=== PATIENT | female | born 1980 | race Two or more races ===

== ENCOUNTER 2020-08-26 10:29 | Emergency (ER) | payer BC, SELFPAY ==
[2020-08-26 11:22] VITALS: BP 112/73; PULSE 94; RESP 18; TEMP 36.2; O2SAT 100; BMI 30.7
[2020-08-26 12:02] VITALS: BP 122/80; PULSE 90; RESP 16; TEMP 36.5; O2SAT 97
--- NOTE | 2020-08-26 12:10 | PC.NURSE ---
PT UPRIGHT IN BED, RR EVEN UNLABORED, SKIN WPD, AOX3. PT C/O INTERMITTENT PAIN TO SUBSTERNAL CHEST/EPIGASTRUM, BILAT SHOULDERS, MID BACK ONGOING X~2 WEEKS. PT STS SEEN HERE FOR SAME RECENTLY, PRESCRIBED MEDICATIONS WHICH HAVE NOT IMPROVED SX. PT STS SX WORSEN AFTER EATING. PT IN NAD, VSS, AWAITING PRIMARY PROVIDER EVAL.
[2020-08-26 12:15] VITALS: PULSE 90
--- NOTE | 2020-08-26 12:39 | XR_ITS ---
EXAMINATION: XR CHEST CLINICAL INFORMATION: Chest pain COMPARISON: None TECHNIQUE: Frontal view of the chest was obtained. FINDINGS: The cardiac and mediastinal contours are normal. There is a 1 cm nodular density at the left lung base probably representing a nipple shadow. The lungs are otherwise clear. There is no pleural effusion or pneumothorax. Bony structures are unremarkable. IMPRESSION: No evidence for acute disease in the chest.
--- NOTE | 2020-08-26 12:39 | ECG_ITS ---
Test Reason : CHEST WALL PAIN Blood Pressure : / mmHG Vent. Rate : 103 BPM Atrial Rate : 103 BPM P-R Int : 146 ms QRS Dur : 070 ms QT Int : 338 ms P-R-T Axes : 035 028 008 degrees QTc Int : 442 ms Sinus tachycardia Nonspecific T wave abnormality Abnormal ECG No previous ECGs available Referred By: Echo Meredith Electronically Signed By:ROXANA BELLO
[2020-08-26] MEDS: Lidocaine 4 % Patch ADH..PATCH 2 PATCH TRANSDERMA (13:21)
[2020-08-26 13:22] LABS: MANUAL DIFF FLAG NO
[2020-08-26] MEDS: diazePAM 5 MG TABLET PO (13:22)
[2020-08-26] MEDS: Ketorolac Tromethamine 15 MG/ML VIAL IV (13:22)
[2020-08-26 13:24] LABS: Basophils Absolute Auto 0.1 X10*3/uL (0.0-0.2); Basophils Percent Auto 0.7 % (0-2); Eosinophils Absolute Auto 0.2 X10*3/uL (0.0-0.4); Eosinophils Percent Auto 2.7 % (0-4); Hematocrit 40.1 % (37-47); Hemoglobin 12.8 g/dl (12.0-16.0); Imm Gran Abs Auto 0.02 X10*3/uL (0.00-0.03); Imm Gran Pct Auto 0.2 % (0.0-0.4); Lymphocytes Absolute Auto 2.7 X10*3/uL (1.2-4.9); Mean Corpuscular HGB Conc 31.9 g/dl (31.0-35.0); Mean Corpuscular Hemoglobin 27.4 pg (27.0-33.0); Mean Corpuscular Volume 85.7 fL (80-98); Mean Platelet Volume 10.2 fL (9.4-12.3); Monocytes Absolute Auto 0.5 X10*3/uL (0.1-1.2); Neutrophils Absolute Auto 5.5 X10*3/uL (2.0-8.3); Neutrophils Percent Auto 61.4 % (45-73); Platelet Count 252 X10*3/uL (160-400); Red Blood Count 4.68 X10*6/uL (4.20-5.50); Red Cell Distribution Width 14.6 % (11.0-16.0)
[2020-08-26 13:35] LABS: Prothrombin Time 11.4 SEC (10.8-13.0)
--- NOTE | 2020-08-26 13:40 | ED_ITS ---
HPI - Chest Pain General Chief Complaint: Chest Pain Stated Complaint: PAIN SHOULDERS BACK Time Seen by Provider: 08/26/20 12:23 Source: patient Mode of arrival: ambulatory Limitations: language barrier ( [place]-speaking) History of Present Illness HPI narrative: 40yoF c NO PMHx presenting to the ED c c/o chest pain radiating to left scapula/back worse c deep inspiration x 1 month. Denies changes in vision, lightheadedness, dizziness, jaw pain, paresthesias, nausea /vomiting, SOB, abdominal pain or extremity swelling. Patient reports she was recently seen here approximately 2 weeks ago given Toradol and muscle relaxers and no symptomatic relief. Risk Factors Coronary artery disease risk factors: smoking history Thoracic aortic dissection risk factors: none Related Data On Oral Contraceptives: No Allergies Allergy/AdvReac Type Severity Reaction Status Date / Time tramadol [TRAMADOL] Allergy Severe ITCHING Verified 08/26/20 11:22 Review of Systems Review of Systems: Yes all other systems are reviewed and are negative Constitutional: Constitutional: Reports as per HPI, Denies excessive sweating, Denies fatigue, Denies headache(s) and Denies weakness Eyes: Eyes: Reports as per HPI ENT: Reports as per HPI, Denies dizziness and Denies headache(s) Cardiovascular: Cardiovascular: Reports as per HPI, Denies diaphoresis, Denies rapid heart rate, Denies pedal edema, Denies edema, Denies leg edema, Denies lightheadedness, Denies palpitations, Denies dyspnea on exertion, Denies orthopnea, Denies paroxysmal nocturnal dyspnea and Denies slow heart rate Respiratory: Respiratory: Reports as per HPI, Denies cough and Denies dyspnea on exertion Gastrointestinal: Gastrointestinal: Reports as per HPI Genitourinary: Genitourinary: Reports as per HPI Musculoskeletal: Musculoskeletal: Reports as per HPI, Denies numbness and Denies tingling Integumentary/Breasts: Skin/Breast: Reports as per HPI Neurologic: Reports as per HPI, Denies dizziness, Denies headache(s), Denies numbness, Denies tingling and Denies weakness Psychiatric: Psychiatric: Reports as per HPI Endocrine: Endocrine: Reports as per HPI, Denies excessive sweating, Denies fatigue and Denies palpitations Hematologic/Lymphatic: Hematologic/Lymphatic: Reports as per HPI Allergic/Immunologic: Allergic/Immunologic: Reports as per HPI [facility] Past Medical History Attestation statement: The following information was validated with the patient. Social History Social History Alcohol intake: never Smoking Status: Current every day smoker Use of substances other than those prescribed or required for medical reasons: No Advance Directives: No Advance Directives Information Provided: Yes Physical Exam Vital Signs and I&O and Narrative: Vital Signs and I&O: Vital Signs Temp 97.7 F 08/26/20 12:02 Pulse 90 08/26/20 12:02 Resp 16 08/26/20 12:02 BP 122/80 08/26/20 12:02 Pulse Ox 97 08/26/20 12:02 Intake & Output 08/25/20 08/26/20 08/26/20 18:59 06:59 18:59 Weight 76.204 kg Body Mass Index 30.7 Const: General: cooperative, healthy appearing, comfortable, no acute distress, well developed, alert, awake and Physically active Nutritional Appearance: average body habitus and well nourished Orientation/consciousness: patient oriented x3 Limitations: no limitations HENMT: Head: Yes normal to inspection, Yes No palpable skull fracture present, Yes normocephalic and Yes atraumatic Ears: hearing grossly normal bilaterally General nose exam: Normal external nose present Face and sinus: Yes normal facial exam Mouth: moist mucous membranes Eyes: General: appearance normal, both eyes and all related structures Visual Chirinos: normal visual chirinos by confrontation Alignment and Position: alignment normal Periorbital: periorbital findings normal Eyelids: Yes eyelids normal Conjunctivae: conjunctivae normal Sclerae: sclerae normal Pupils: Equal, round and reactive pupils present EOM: EOMs intact bilaterally Neck: Neck: Yes normal visual inspection, Yes full ROM, Yes no lymphadenopathy, Yes no meningeal signs, Yes trachea midline and Yes supple Chest: Chest palpation & inspection: normal inspection of the chest and tenderness pectoral muscle on the left Resp: Effort & Inspection: normal respiratory effort and able to speak in complete sentences Auscultation: clear to auscultation bilaterally, no crackles, no rales, no rhonchi and no wheezes Cardio: Rate: regular rate Rhythm: regular rhythm Heart sounds: S1 normal heart sound present and S2 normal heart sound present Peripheral pulses: Peripheral pulses 2+ throughout GI: Inspection: Yes normal to inspection Palpation (GI): Soft to palpation, nontender and No hepatosplenomegaly present Percussion: Yes normal to percussion Auscultation: normal bowel sounds : General: Yes no CVA tenderness Back/Spine/Pelvis: Back: no CVA tenderness Cervical Spine: normal cervical lordosis and cervical ROM normal Thoracic/Lumbar Spine: thoracic and lumbar spine normal to inspection and thoraco-lumbar ROM normal Skin: General skin exam: no rashes or lesions noted, elasticity normal and turgor normal Trauma: no lacerations or abrasions Wounds: no wounds Hair: normal Nails: normal Neuro: General: patient oriented x3 and no meningeal signs Cranial nerves: Yes CN's II-XII intact bilaterally and Yes Equal, round and reactive pupils present Cognition (Neuro): normal cognition Gait exam (Neuro): Normal gait present Motor exam (neuro): 5/5 motor strength present throughout Extrem: General: Yes normal to inspection, Yes full ROM, Yes capillary refill normal, Yes no clubbing, cyanosis or edema, No no pedal edema, No no calf tenderness, Yes normal gait and No edema Right upper extremity: normal to inspection, full ROM and normal capillary refill; no edema Left upper extremity: normal to inspection, full ROM and normal capillary refill; no edema Right lower extremity: normal to inspection, full ROM and normal capillary refill; no edema Left lower extremity: normal to inspection, full ROM and normal capillary refill; no edema Psych: Appearance: grossly normal and well kempt Mental Status: mental status grossly normal Speech and movement: Normal speech and movement present and Clear speech present Affect: normal affect Attitude: cooperative Thought process: Normal thought process present Thought content: Normal thought content present Insight: Good insight present (Psych) Judgement: Good judgement present (Psych) Course Course Course Narrative: Labs WNL including D-dimer and troponin. Chest x-ray within normal limits no acute processes noted. EKG sinus tachycardia no acute ischemic changes. no prior EKGs to compare. Patient reports symptomatic relief mildly with the Toradol, Valium and lidocaine patches. Will DC home with symptomatic treatment along with instructions to return if any new or worsening symptoms and to follow up with primary care provider. Patient understands agrees with this plan. MDM - Chest Pain MDM Narrative Medical decision making narrative: 40yoF c NO PMHx presenting to the ED c c/o chest pain radiating to left scapula/back worse c deep inspiration x 1 month. Denies changes in vision, lightheadedness, dizziness, jaw pain, paresthesias, nausea /vomiting, SOB, abdominal pain or extremity swelling. - Concern for ACS vs PE vs muscular strain. - Plan: Labs, CXR, ekg. Provide symptomatic treatment with Lidoderm patches, Flexeril and Valium then re-evaluate. Medical Records Data Attestation: I reviewed the patient's medical records. Lab Data Attestation: I reviewed the patient's lab results. Result diagrams: 08/26/20 13:08 08/26/20 13:08 Labs: Lab Results 08/26/20 08/26/20 08/26/20 Range/Units 13:08 13:08 13:08 WBC 9.0 (4.8-10.8) X10*3/uL RBC 4.68 (4.20-5.50) X10*6/uL Hgb 12.8 (12.0-16.0) g/dl Hct 40.1 (37-47) % MCV 85.7 (80-98) fL MCH 27.4 (27.0-33.0) pg MCHC 31.9 (31.0-35.0) g/dl RDW 14.6 (11.0-16.0) % Plt Count 252 (160-400) X10*3/uL MPV 10.2 (9.4-12.3) fL Immature Gran % (Auto) 0.2 (0.0-0.4) % Neut % (Auto) 61.4 (45-73) % Lymph % (Auto) 30.0 (20-40) % [place] % (Auto) 5.0 (2-11) % Eos % (Auto) 2.7 (0-4) % Baso % (Auto) 0.7 (0-2) % Neut # (Auto) 5.5 (2.0-8.3) X10*3/uL Lymph # (Auto) 2.7 (1.2-4.9) X10*3/uL [place] # (Auto) 0.5 (0.1-1.2) X10*3/uL Eos # (Auto) 0.2 (0.0-0.4) X10*3/uL Baso # (Auto) 0.1 (0.0-0.2) X10*3/uL Abs Immat Gran (auto) 0.02 (0.00-0.03) X10*3/uL Absolute Nucleated RBC 0.000 (0.0-0.012) X10*3/uL Nucleated RBC % (auto) 0.0 (0.0-0.2) /100WBC PT 11.4 (10.8-13.0) SEC INR 1.0 (0.9-1.1) D-Dimer 221 NG/ML Sodium 139 (135-145) mmol/L Potassium 3.8 (3.3-5.1) mmol/l Chloride 107 (96-108) mmol/L Carbon Dioxide 27 (22-29) mmol/L Anion Gap 9 L (12-20) BUN 13 (9-16) mg/dL Creatinine 0.80 (0.5-1.4) mg/dL Estim Creat Clear Calc 91.1 Estimated GFR > 60 Random Glucose 76 (60-115) mg/dL Calcium 9.1 (8.4-10.2) mg/dL Troponin I High Sens (<3.5-17.0) ng/L 08/26/20 Range/Units 13:08 WBC (4.8-10.8) X10*3/uL RBC (4.20-5.50) X10*6/uL Hgb (12.0-16.0) g/dl Hct (37-47) % MCV (80-98) fL MCH (27.0-33.0) pg MCHC (31.0-35.0) g/dl RDW (11.0-16.0) % Plt Count (160-400) X10*3/uL MPV (9.4-12.3) fL Immature Gran % (Auto) (0.0-0.4) % Neut % (Auto) (45-73) % Lymph % (Auto) (20-40) % [place] % (Auto) (2-11) % Eos % (Auto) (0-4) % Baso % (Auto) (0-2) % Neut # (Auto) (2.0-8.3) X10*3/uL Lymph # (Auto) (1.2-4.9) X10*3/uL [place] # (Auto) (0.1-1.2) X10*3/uL Eos # (Auto) (0.0-0.4) X10*3/uL Baso # (Auto) (0.0-0.2) X10*3/uL Abs Immat Gran (auto) (0.00-0.03) X10*3/uL Absolute Nucleated RBC (0.0-0.012) X10*3/uL Nucleated RBC % (auto) (0.0-0.2) /100WBC PT (10.8-13.0) SEC INR (0.9-1.1) D-Dimer NG/ML Sodium (135-145) mmol/L Potassium (3.3-5.1) mmol/l Chloride (96-108) mmol/L Carbon Dioxide (22-29) mmol/L Anion Gap (12-20) BUN (9-16) mg/dL Creatinine (0.5-1.4) mg/dL Estim Creat Clear Calc Estimated GFR Random Glucose (60-115) mg/dL Calcium (8.4-10.2) mg/dL Troponin I High Sens < 3.5 (<3.5-17.0) ng/L Imaging Data Chest x-ray: Attestation: I personally reviewed and interpreted this imaging study as follows: Radiologist's impression: IMPRESSION: No evidence for acute disease in the chest. ECG Data ECG #1: Attestation: I personally reviewed and interpreted this ECG as follows: ECG interpretation date: 08/26/20 ECG interpretation time: 10:48 Interpretation: sinus tachycardia ventricular rate 103 with Normal WA interval nonspecific T-wave abnormalities, normal QT / QTC interval, no acute ischemic changes noted. no prior EKG to compare at this time
[2020-08-26 13:58] LABS: Blood Urea Nitrogen 13 mg/dL (9-16); Calcium 9.1 mg/dL (8.4-10.2); Creatinine Clr Calc Pharmacy 91.1; Estimated Glomerular Filt Rate > 60; Glucose Random 76 mg/dL (60-115)
[2020-08-26 13:59] LABS: Troponin-I High Sensitivity < 3.5 ng/L (<3.5-17.0)
[2020-08-26 14:00] VITALS: BP 119/74; PULSE 75; RESP 15; TEMP 36.6; O2SAT 100
[2020-08-26 14:09] LABS: Anion Gap 9 (12-20); Carbon Dioxide 27 mmol/L (22-29); Chloride 107 mmol/L (96-108); Potassium 3.8 mmol/l (3.3-5.1); Sodium 139 mmol/L (135-145)
[2020-08-26 14:52] LABS: D Dimer 221 NG/ML
[2020-08-26 15:05] LABS: Glucose Urine UA NEG (NEG); Leukocyte Esterase Urine NEG (NEG); Nitrite Urine NEG (NEG); Urine Blood NEG (NEG); Urine Ketones NEG (NEG); Urine Protein NEG (NEG-TRACE)
[2020-08-26 15:18] LABS: Mucus Urine 1+ /LPF; RBC Urine 0 /HPF (0); Squamous Epithelial Cell Urine 2+ /LPF; WBC Urine 0 /HPF (0-4)
[2020-08-26 15:20] LABS: Appearance Urine HAZY; Color Urine YELLOW
--- NOTE | 2020-08-26 15:45 | PC.NURSE ---
PT UPRIGHT IN BED, NO NEW COMPLAINTS, PT REPORTS TOTAL RESOLUTION OF SX S/P MEDICATION. PT AWARE/AGREEABLE TO PENDING D/C.
[2020-08-26 16:03] LABS: UPreg QC Valid YES; Urine Pregnancy NEGATIVE (NEGATIVE)
== END 2020-08-26 15:46 | disposition home or self-care (01) ==
PROVIDERS: Physician Assistant Medical; Emergency Provider Emergency Medicine
DX: R07.89 Other chest pain (principal); M54.5 Low back pain; M25.512 Pain in left shoulder
CPT/HCPCS: 36415; 71045; 80048; 81001; 81025; 84484; 85025; 85379; 85610; 93005; 93010; 96374; 99284; 99285; J1885

== ENCOUNTER 2020-09-11 10:37 | Emergency (ER) | payer BC, SELFPAY ==
[2020-09-11 10:57] VITALS: BP 133/67; PULSE 78; RESP 16; TEMP 37; O2SAT 98; BMI 28.7
--- NOTE | 2020-09-11 11:43 | ECG_ITS ---
Test Reason : DIZZINESS Blood Pressure : / mmHG Vent. Rate : 066 BPM Atrial Rate : 066 BPM P-R Int : 152 ms QRS Dur : 076 ms QT Int : 410 ms P-R-T Axes : -16 035 011 degrees QTc Int : 429 ms Normal sinus rhythm Normal ECG When compared with ECG of 26-AUG-2020 10:48, Vent. rate has decreased BY 37 BPM Referred By: Ana Luisa Cuellar Electronically Signed By:TOY JACKSON MD
--- NOTE | 2020-09-11 11:50 | ED.GENADULT ---
HPI - General Adult General Chief complaint: General Medical Stated complaint: VOMITING DIZZY Time Seen by Provider: 09/11/20 11:33 Source: patient Mode of arrival: ambulatory History of Present Illness HPI narrative: 40-year-old female with a PMHx vertigo presenting to ED complaining of room spinning dizziness and nausea since yesterday. Reports similar symptoms in the past with vertigo 4 years ago. Also reports white vaginal discharge pruritus and painful lesion x last week. Is sexually active with 1 partner. Denies head trauma /LOC, vision changes, CP/SOB, abdominal pain, dysuria /hematuria, vaginal bleeding. Onset (ago): day(s) Related Data Previous Rx's Medication Instructions Recorded diazepam [Valium] 5 mg PO TID PRN #10 tab 08/26/20 naproxen 500 mg PO BID PRN #10 tab 08/26/20 meclizine 25 mg PO TID PRN #14 tab 09/11/20 valacyclovir [Valtrex] 1,000 mg PO BID 7 Days #14 tab 09/11/20 Allergies Allergy/AdvReac Type Severity Reaction Status Date / Time tramadol [TRAMADOL] Allergy Severe ITCHING Verified 08/26/20 11:22 Review of Systems Review of Systems: Constitutional: No Weight loss, No Fever, No Chills, No Night Sweats, No Fatigue, No Malaise Cardiovascular: No Chest Pain, No SOB, No Dyspnea on Exertion Respiratory: No Cough, No Sputum, No Wheezing, No Smoke Exposure, No Dyspnea Gastrointestinal: + Nausea, No Vomiting, No Diarrhea, No Constipation, No Abdominal pain Genitourinary: No irregular bleeding, No Dysuria, No Urinary Frequency, No Hematuria,+vaginal d/c Musculoskeletal: No joint pain, No Myalgias, No Joint Swelling Skin: +Skin Lesions, No rash Neuro: No Weakness, No Numbness, No Paresthesias, No Loss of Consciousness, + Dizziness, No Headache Neurologic: Denies Sensory deficit (Neuro) [facility] Past Medical History Attestation statement: The following information was validated with the patient. Source: nursing notes reviewed Social History Social History Alcohol intake: never Smoking Status: Current every day smoker Advance Directives: No Advance Directives Information Provided: Yes Physical Exam Vital Signs: Vital Signs: Vital Signs Temp Pulse Resp BP Pulse Ox 10/22/20 14:00 98.6 F 68 16 120/72 09/11/20 10:57 98.6 F 78 16 133/67 98 Body Mass Index 28.7 Const: General: cooperative and healthy appearing Orientation/consciousness: patient oriented x3 Limitations: no limitations HENMT: Head: Yes normal to inspection Ears: hearing grossly normal bilaterally General nose exam: Normal external nose present Face and sinus: Yes normal facial exam Eyes: Other: + right sided fatigable nystagmus General: appearance normal, both eyes and all related structures Pupils: Equal, round and reactive pupils present EOM: EOMs intact bilaterally Neck: Neck: Yes normal visual inspection and Yes no meningeal signs Resp: Effort & Inspection: normal respiratory effort Auscultation: clear to auscultation bilaterally, no crackles, no rales and no rhonchi Cardio: Rate: regular rate Heart sounds: S1 normal heart sound present and S2 normal heart sound present GI: Inspection: Yes normal to inspection Palpation (GI): Soft to palpation, nontender, no guarding and not rigid : Other: patient deferred speculum exam. small erythematous ulcer noted to left perineum Skin: Rashes: no rashes Wounds: no wounds Neuro: General: patient oriented x3, gait normal, tone normal, moves all extremities, no meningeal signs, no focal motor deficits and CN's II-XI intact bilaterally Cranial nerves: Yes Equal, round and reactive pupils present Gait exam (Neuro): Normal gait present Motor exam (neuro): 5/5 motor strength present throughout Sensory Exam: No Sensory deficit (Neuro) Coordination: [id number] test normal Extrem: General: Yes normal to inspection Course Course Course Narrative: -1354-- mild leukocytosis of 13.9 , labs otherwise unremarkable, troponin negative, UA and U negative. -On re-evaluation patient reports symptomatic improvement. worrisome signs and symptoms and strict return precautions discussed. Patient verbalized understanding feel safe for discharge home Medical Decision Making MDM Narrative Medical decision making narrative: 40-year-old female with a PMHx vertigo presenting to ED complaining of room spinning dizziness and nausea since yesterday. Also reports white vaginal discharge pruritus and painful lesion x last week. On exam VSS, NAD, no focal neuro deficits. Fatigable nystagmus noted. Ambulating with steady gait. Herpes like lesion noted to left perineum. Concern for BPPV and STI including herpes. Rule out dehydration /metabolic abnormalities. Low concern for ACS/ICH/CVT or meningitis. Unlikely intra-abdominal pathology/PID. -Discussed with patient ideally would do pelvic exam, however she deferred due to Pap smear in 2 weeks. Was agreeable to empiric treatment with Valtrex, Rocephin, Azithromycin, and Diflucan in the ED Plan: EKG, labs, UA, STI testing, IVF, meclizine, reassess Lab Data Result diagrams: 09/11/20 12:37 09/11/20 12:37 Labs: Lab Results 09/11/20 09/11/20 09/11/20 Range/Units 12:37 12:37 12:37 WBC 13.9 H (4.8-10.8) X10*3/uL RBC 4.77 (4.20-5.50) X10*6/uL Hgb 13.0 (12.0-16.0) g/dl Hct 40.2 (37-47) % MCV 84.3 (80-98) fL MCH 27.3 (27.0-33.0) pg MCHC 32.3 (31.0-35.0) g/dl RDW 14.4 (11.0-16.0) % Plt Count 253 (160-400) X10*3/uL MPV 10.8 (9.4-12.3) fL Immature Gran % (Auto) 0.3 (0.0-0.4) % Neut % (Auto) 77.3 H (45-73) % Lymph % (Auto) 17.6 L (20-40) % [place] % (Auto) 3.5 (2-11) % Eos % (Auto) 1.0 (0-4) % Baso % (Auto) 0.3 (0-2) % Lymph # (Auto) 2.4 (1.2-4.9) X10*3/uL [place] # (Auto) 0.5 (0.1-1.2) X10*3/uL Eos # (Auto) 0.1 (0.0-0.4) X10*3/uL Baso # (Auto) 0.0 (0.0-0.2) X10*3/uL Abs Immat Gran (auto) 0.04 H (0.00-0.03) X10*3/uL Absolute Neuts (auto) 10.7 H (2.0-8.3) X10*3/uL Absolute Nucleated RBC 0.000 (0.0-0.012) X10*3/uL Nucleated RBC % (auto) 0.0 (0.0-0.2) /100WBC Sodium 137 (135-145) mmol/L Potassium 4.3 (3.3-5.1) mmol/l Chloride 103 (96-108) mmol/L Carbon Dioxide 25 (22-29) mmol/L Anion Gap 13 (12-20) BUN 9 (9-16) mg/dL Creatinine 0.71 (0.5-1.4) mg/dL Estim Creat Clear Calc 99.2 Estimated GFR > 60 Random Glucose 86 (60-115) mg/dL Calcium 8.8 (8.4-10.2) mg/dL Magnesium 2.1 (1.6-2.6) mg/dL Total Bilirubin 0.4 (0.0-1.0) mg/dL Direct Bilirubin 0.2 (0.0-0.5) mg/dL AST 26 (5-31) U/L ALT 27 (0-31) U/L Alkaline Phosphatase 63 (39-117) U/L Total Protein 7.3 (6.5-8.0) g/dL Albumin 4.2 (3.5-5.0) g/dL Urine Color YELLOW Urine Appearance HAZY Urine pH 6.5 (5.0-8.0) Ur Specific [place] 1.015 (1.005-1.025) Urine Protein NEG (NEG-TRACE) MG/DL Urine Glucose (UA) NEG (NEG) MG/DL Urine Ketones NEG (NEG) MG/DL Urine Blood TRACE (NEG) Urine Nitrite NEG (NEG) Ur Leukocyte Esterase NEG (NEG) Urine RBC 0-2 (0) /HPF Urine WBC 0 (0-4) /HPF Ur Squamous Epith Cells 2+ /LPF Urine Bacteria NONE /LPF Urine Test (NEGATIVE) 09/11/20 Range/Units 12:37 WBC (4.8-10.8) X10*3/uL RBC (4.20-5.50) X10*6/uL Hgb (12.0-16.0) g/dl Hct (37-47) % MCV (80-98) fL MCH (27.0-33.0) pg MCHC (31.0-35.0) g/dl RDW (11.0-16.0) % Plt Count (160-400) X10*3/uL MPV (9.4-12.3) fL Immature Gran % (Auto) (0.0-0.4) % Neut % (Auto) (45-73) % Lymph % (Auto) (20-40) % [place] % (Auto) (2-11) % Eos % (Auto) (0-4) % Baso % (Auto) (0-2) % Lymph # (Auto) (1.2-4.9) X10*3/uL [place] # (Auto) (0.1-1.2) X10*3/uL Eos # (Auto) (0.0-0.4) X10*3/uL Baso # (Auto) (0.0-0.2) X10*3/uL Abs Immat Gran (auto) (0.00-0.03) X10*3/uL Absolute Neuts (auto) (2.0-8.3) X10*3/uL Absolute Nucleated RBC (0.0-0.012) X10*3/uL Nucleated RBC % (auto) (0.0-0.2) /100WBC Sodium (135-145) mmol/L Potassium (3.3-5.1) mmol/l Chloride (96-108) mmol/L Carbon Dioxide (22-29) mmol/L Anion Gap (12-20) BUN (9-16) mg/dL Creatinine (0.5-1.4) mg/dL Estim Creat Clear Calc Estimated GFR Random Glucose (60-115) mg/dL Calcium (8.4-10.2) mg/dL Magnesium (1.6-2.6) mg/dL Total Bilirubin (0.0-1.0) mg/dL Direct Bilirubin (0.0-0.5) mg/dL AST (5-31) U/L ALT (0-31) U/L Alkaline Phosphatase (39-117) U/L Total Protein (6.5-8.0) g/dL Albumin (3.5-5.0) g/dL Urine Color Urine Appearance Urine pH (5.0-8.0) Ur Specific [place] (1.005-1.025) Urine Protein (NEG-TRACE) MG/DL Urine Glucose (UA) (NEG) MG/DL Urine Ketones (NEG) MG/DL Urine Blood (NEG) Urine Nitrite (NEG) Ur Leukocyte Esterase (NEG) Urine RBC (0) /HPF Urine WBC (0-4) /HPF Ur Squamous Epith Cells /LPF Urine Bacteria /LPF Urine Test NEGATIVE (NEGATIVE) Discharge Plan Discharge Clinical Impression: STI (sexually transmitted infection) Benign paroxysmal positional vertigo Qualifiers: Laterality: unspecified laterality Qualified Code(s): H81.10 - Benign paroxysmal vertigo, unspecified ear Patient Disposition: Home, Self-Care Instructions: Sexually Transmitted Diseases (ED), Benign Paroxysmal Positional Vertigo (ED) Additional Instructions: your blood work was unremarkable today in the ED Your empirically treated for gonorrhea, chlamydia, and yeast infection. You were given her 1st dose of herpes treatment, Valtrex as the remaining antiviral medication, take as prescribed You need to refrain from any sexual contact until you know the results of her cultures If anything is positive we will call you If her dizziness persists or worsens return to the ED. You may take meclizine at home as needed for dizziness/nausea if you have fever, persistent vaginal discharge, abdominal pain, vomiting return to the ED Prescriptions: New meclizine 25 mg tablet 25 mg PO TID PRN (Reason: dizziness) Qty: 14 RF: 0 valacyclovir [Valtrex] 1 gram tablet 1,000 mg PO BID 7 Days Qty: 14 RF: 0 No Action naproxen 500 mg tablet 500 mg PO BID PRN (Reason: pain) Qty: 10 RF: 0 diazepam [Valium] 5 mg tablet 5 mg PO TID PRN (Reason: pain) Qty: 10 RF: 0 Referrals: ED Physician,Generic [Emergency Provider] - 2 days ( your primary care doctor) Alicia Chang MD [Physician] - 2 days ( follow-up with your OBGYN as scheduled, or our OBGYN office is) Print Language: Syriac
[2020-09-11] MEDS: 0.9 % Sodium Chloride 1,000 ML 999 ML IVCONT (12:39)
[2020-09-11] MEDS: ondansetron HCL 4 MG/2 ML VIAL IVPUSH (12:39)
[2020-09-11] MEDS: Meclizine HCl 25 MG TABLET PO (12:39)
[2020-09-11 12:54] LABS: MANUAL DIFF FLAG NO
[2020-09-11 12:57] LABS: Basophils Percent Auto 0.3 % (0-2); Eosinophils Absolute Auto 0.1 X10*3/uL (0.0-0.4); Hematocrit 40.2 % (37-47); Imm Gran Abs Auto 0.04 X10*3/uL (0.00-0.03); Imm Gran Pct Auto 0.3 % (0.0-0.4); Lymphocytes Absolute Auto 2.4 X10*3/uL (1.2-4.9); Lymphocytes Percent Auto 17.6 % (20-40); Mean Corpuscular HGB Conc 32.3 g/dl (31.0-35.0); Mean Corpuscular Hemoglobin 27.3 pg (27.0-33.0); Mean Corpuscular Volume 84.3 fL (80-98); Mean Platelet Volume 10.8 fL (9.4-12.3); Monocytes Absolute Auto 0.5 X10*3/uL (0.1-1.2); Monocytes Percent Auto 3.5 % (2-11); Neutrophils Absolute Auto 10.7 X10*3/uL (2.0-8.3); Neutrophils Percent Auto 77.3 % (45-73); Platelet Count 253 X10*3/uL (160-400); Red Blood Count 4.77 X10*6/uL (4.20-5.50); Red Cell Distribution Width 14.4 % (11.0-16.0); White Blood Count 13.9 X10*3/uL (4.8-10.8)
[2020-09-11 13:14] LABS: Glucose Urine UA NEG (NEG); Leukocyte Esterase Urine NEG (NEG); Nitrite Urine NEG (NEG); PH 6.5 (5.0-8.0); Specific Gravity - Urine 1.015 (1.005-1.025); Urine Blood TRACE (NEG); Urine Ketones NEG (NEG); Urine Protein NEG (NEG-TRACE)
[2020-09-11 13:21] LABS: Appearance Urine HAZY; Color Urine YELLOW
[2020-09-11 13:22] LABS: Alanine Aminotransferase 27 U/L (0-31); Albumin Level 4.2 g/dL (3.5-5.0); Alkaline Phosphatase 63 U/L (39-117); Anion Gap 13 (12-20); Aspartate Amino Transferase 26 U/L (5-31); Bilirubin Direct 0.2 mg/dL (0.0-0.5); Bilirubin Total 0.4 mg/dL (0.0-1.0); Blood Urea Nitrogen 9 mg/dL (9-16); Calcium 8.8 mg/dL (8.4-10.2); Carbon Dioxide 25 mmol/L (22-29); Chloride 103 mmol/L (96-108); Creatinine Clr Calc Pharmacy 99.2; Estimated Glomerular Filt Rate > 60; Glucose Random 86 mg/dL (60-115); Magnesium 2.1 mg/dL (1.6-2.6); Potassium 4.3 mmol/l (3.3-5.1); Sodium 137 mmol/L (135-145); Total Protein 7.3 g/dL (6.5-8.0)
[2020-09-11 13:23] LABS: UPreg QC Valid YES; Urine Pregnancy NEGATIVE (NEGATIVE)
[2020-09-11 13:47] LABS: RBC Urine 0-2 /HPF (0); Squamous Epithelial Cell Urine 2+ /LPF; WBC Urine 0 /HPF (0-4)
[2020-09-11 14:00] VITALS: BP 120/72; PULSE 68; RESP 16; TEMP 37
[2020-09-11] MEDS: cefTRIAXone sodium 250 MG VIAL IM (14:09)
[2020-09-11] MEDS: Azithromycin 500 MG TABLET 1000 MG PO (14:09)
[2020-09-11] MEDS: Lidocaine HCl 1 % 20 ML VIAL SUBCUT (14:10)
[2020-09-11] MEDS: Fluconazole 150 MG TABLET PO (14:11)
[2020-09-11 18:07] LABS: CT PCR NOT DETECTED (Not Detect.); NG PCR NOT DETECTED (Not Detect.)
== END 2020-09-11 14:44 | disposition home or self-care (01) ==
PROVIDERS: Physician Assistant; Emergency Provider Emergency Medicine
DX: H81.10 Benign paroxysmal vertigo, unspecified ear (principal); Z20.2 Contact with and (suspected) exposure to infections with a predominantly sexual mode of transmission; F17.200 Nicotine dependence, unspecified, uncomplicated; Z71.6 Tobacco abuse counseling; Z79.899 Other long term (current) drug therapy
CPT/HCPCS: 36415; 80048; 80076; 81001; 81003; 81025; 83735; 85025; 87255; 87491; 87591; 93005; 96361; 96372; 96374; 99284; J0696; J2405

== ENCOUNTER 2020-09-17 15:08 | Emergency (ER) | payer BC, SELFPAY ==
--- NOTE | ~2020-09-17 | US_ITS ---
EXAMINATION: US DIAGNOSTIC ULTRASOUND BREAST, RIGHT CLINICAL INFORMATION: Right breast pain, lump. Question abscess.. COMPARISON: None. TECHNIQUE: Ultrasound of the breast is performed with real-time martinez scale imaging and color Doppler. FINDINGS: Static images of the right breast labeled 12:00 are submitted for review. A tiny anechoic structure measuring 0.3 cm within the area of the palpable mass specified by the patient. This finding is consistent with a simple cyst. Review of the images overall demonstrates generalized echogenic altered echotexture in the surrounding tissue which extends to the dermal surface. There is no abnormal fluid collection. The skin does not appear thickened. Review of the color Doppler images demonstrates no increased vascularity. US/US breast RT limited IMPRESSION: Review of the static images in the area of concern in the right breast, 12:00 position, are most suggestive of a benign process such as fat necrosis which can occur in the setting of trauma. There are no ultrasound findings consistent with abscess. No specific ultrasound findings to suggest an ongoing infection. Recommend follow-up ultrasound in 3 months to reassess. ASSESSMENT: BI-RADS 3: Probably Benign RECOMMENDATION: Recommend follow-up right breast diagnostic ultrasound in 3 months to reassess and confirm expected evolution of these probably benign findings.
[2020-09-17 15:31] VITALS: BP 130/64; PULSE 87; RESP 16; TEMP 36.8; O2SAT 99; BMI 28.5
--- NOTE | 2020-09-17 18:46 | ED.GENADULT ---
HPI - General Adult General Chief complaint: General Medical Stated complaint: BREAST PAIN Time Seen by Provider: 09/17/20 17:49 Source: patient Mode of arrival: ambulatory Limitations: no limitations History of Present Illness HPI narrative: 40yoF c PMHx of recently being dx c Herpes on 09/11 presenting to the ED c c/o white vaginal discharge with a fishy odor x 1 week worse today. Denies any sores or lesions to the vagina or the anus. Reports she is still taking her valacyclovir and the sores and lesions she had have resolved although she continues to have this white vaginal discharge. Also reports that she is having pain to her right breast she feels a lump that she noticed approximately 1 week ago. Denies any other symptoms complaints or concerns at this time. Related Data Previous Rx's Medication Instructions Recorded diazepam [Valium] 5 mg PO TID PRN #10 tab 08/26/20 naproxen 500 mg PO BID PRN #10 tab 08/26/20 meclizine 25 mg PO TID PRN #14 tab 09/11/20 valacyclovir [Valtrex] 1,000 mg PO BID 7 Days #14 tab 09/11/20 fluconazole [Diflucan] 150 mg PO Q3D #2 tab NS 09/17/20 metronidazole [Flagyl] 500 mg PO BID 7 Days #14 tab NS 09/17/20 Allergies Allergy/AdvReac Type Severity Reaction Status Date / Time tramadol [TRAMADOL] Allergy Severe ITCHING Verified 08/26/20 11:22 Review of Systems Review of Systems: Constitutional : No Fever, No Chills, Respiratory : No Cough, No Sputum, No Wheezing Gastrointestinal : No Nausea, No Vomiting, No Diarrhea, No Constipation, No abdominal Pain Genitourinary : + Vaginal discharge, No lesion/rashes in vagina area, no irregular bleeding, No Dysuria, No Urinary Frequency, No Hematuria, No Urinary Incontinence, No Urgency, No Flank Pain, No Urinary Flow Changes, No Hesitancy Musculoskeletal : No joint pain, No Myalgias, No Joint Swelling Skin : No Skin Lesions, No rash Neuro : No Weakness Yes all other systems are reviewed and are negative PMFSH Past Medical History Attestation statement: The following information was validated with the patient. Social History Social History Alcohol intake: never Smoking Status: Never smoker Advance Directives: No Advance Directives Information Provided: No Physical Exam Vital Signs: Vital Signs: Vital Signs Temp Pulse Resp BP Pulse Ox 09/17/20 15:31 98.2 F 87 16 130/64 99 Body Mass Index 28.5 vital signs have been reviewed as normal and appeared to be correct. Blood pressure normal. Heart rate normal. Respiration rate normal. Temperature normal. Oxygen saturation normal. Appearance: Alert. Oriented X3. No acute distress. Head: Normal external exam. Normocephalic. Atraumatic. No [place] signs noted. No raccoon eyes noted Eyes: PERRLA. EOMI. Conjunctiva and sclera normal. Eyelids normal. ENT: EAC normal. TM's Normal. Pharynx normal. Uvula midline. Moist mucous membranes. No trismus noted. No drooling noted. No muffled voice noted. Neck: Normal inspection. Neck supple. FROM. No adenopathy. Thyroid Normal. No meningeal signs. No neck mass noted. CVS: Normal heart rate and rhythm. Heart sound normal. No murmurs noted. Pulses normal throughout. Breast exam: Bilateral breast normal external appearance. No nipple discharge noted to bilateral breast. To the right breast at the 12 through 01:00 o'clock aspect there is a 1 cm nonmobile nodule noted. Respiratory: No respiratory distress. Painless inspiration. Breath sounds normal. No wheezes/rales/rhonchi noted. Chest nontender. No accessory muscle usage noted or decreased air movement noted. Abdomen: Soft and nontender. Bowel sounds normal in all 4 quadrants. No distention noted. No organomegaly noted. No visible injury noted. : Chelle RN at bedside during exam. No lesions/sores/rashes noted to vaginal or anus. Patient noted to have a white fishy mild odorous discharge. Back: No CVA tenderness. Full range of motion noted. Skin: Skin warm and dry. Normal skin color. Normal skin turgor. No rashes/lesions/lacerations noted. Extremities: No lower extremity edema. Extremities exhibit normal range of motion. Extremities nontender. Neuro: Oriented X 3. No motor deficit. No sensory deficit. Reflexes normal. Chest: Breast/axilla inspection: abnormal inspection of the axilla and abnormal inspection of the breast Course Course Course Narrative: 18:30PM 40yoF c PMHx of recently being dx c Herpes on 09/11 presenting to the ED c c/o white vaginal discharge with a fishy odor x 1 week worse today and pain/limp to her right breast she feels a lump. - labs reviewed from patient's prior visit and patient noted to be positive for herpes negative for gonorrhea chlamydia although bacterial vaginosis and Trichomonas was not obtained therefore will obtain bacterial vaginosis and Trichomonas along with yeast today. Patient most likely bacterial vaginosis therefore will treat. Right breast with lump will obtain ultrasound to evaluate for possible abscess versus mass. Then re-evaluate. Reevaluation(s) Reevaluation #1: UA within normal limits no evidence of UTI. UHCG negative. Bacterial vaginosis/Trichomonas and candidiasis pending at this time. Although patient most likely bacterial vaginosis/candidiasis therefore will treat for both. Ultrasound of her right breast revealed a 0.3 cm palpable mass most likely related to a simple cyst no signs of infection therefore they are recommending for repeat imaging within 3 months. Will discuss this with the patient and give her her results and instructions return if any new or worsening symptoms. Patient understands agrees the plan. Time: 21:08 Medical Decision Making Lab Data Labs: Lab Results 09/17/20 Range/Units 19:40 Urine Color YELLOW Urine Appearance CLEAR Urine pH 6.0 (5.0-8.0) Ur Specific [place] >= 1.030 H (1.005-1.025) Urine Protein NEG (NEG-TRACE) MG/DL Urine Glucose (UA) NEG (NEG) MG/DL Urine Ketones 5 (NEG) MG/DL Urine Blood 1+ H (NEG) Urine Nitrite NEG (NEG) Ur Leukocyte Esterase NEG (NEG) Urine RBC 1-4 (0) /HPF Urine WBC 0 (0-4) /HPF Ur Squamous Epith Cells 1+ /LPF Urine Bacteria TRACE /LPF Urine Test NEGATIVE (NEGATIVE) Discharge Plan Discharge Clinical Impression: Bacterial vaginosis, Yeast vaginitis Patient Disposition: Home, Self-Care Instructions: Bacterial Vaginosis (ED), Yeast Infection (ED) Prescriptions: New fluconazole [Diflucan] 150 mg tablet 150 mg PO Q3D Qty: 2 RF: 0 metronidazole [Flagyl] 500 mg tablet 500 mg PO BID 7 Days Qty: 14 RF: 0 No Action meclizine 25 mg tablet 25 mg PO TID PRN (Reason: dizziness) Qty: 14 RF: 0 valacyclovir [Valtrex] 1 gram tablet 1,000 mg PO BID 7 Days Qty: 14 RF: 0 naproxen 500 mg tablet 500 mg PO BID PRN (Reason: pain) Qty: 10 RF: 0 diazepam [Valium] 5 mg tablet 5 mg PO TID PRN (Reason: pain) Qty: 10 RF: 0 Referrals: Pascual Cummins MD [Primary Care Provider] - 2 days Stand Alone Forms: Work/School Release Print Language: Maldivian
[2020-09-17 20:00] VITALS: BP 132/76; PULSE 82; RESP 16; TEMP 36.1; O2SAT 97
[2020-09-17 20:03] LABS: Glucose Urine UA NEG (NEG); Leukocyte Esterase Urine NEG (NEG); Nitrite Urine NEG (NEG); Specific Gravity - Urine >= 1.030 (1.005-1.025); Urine Blood 1+ (NEG); Urine Ketones 5 MG/DL (NEG); Urine Protein NEG (NEG-TRACE)
[2020-09-17 20:05] LABS: Appearance Urine CLEAR; Color Urine YELLOW; UPreg QC Valid YES; Urine Pregnancy NEGATIVE (NEGATIVE)
[2020-09-17 20:12] LABS: Bacteria Urine TRACE /LPF; Squamous Epithelial Cell Urine 1+ /LPF; WBC Urine 0 /HPF (0-4)
[2020-09-17] MEDS: metroNIDAZOLE 500 MG TABLET PO (20:42)
[2020-09-17] MEDS: Fluconazole 150 MG TABLET PO (20:42)
[2020-09-18 11:19] LABS: BV Int Neg Control Negative (Negative); BV Int Pos Control Positive (Positive)
== END 2020-09-17 21:45 | disposition home or self-care (01) ==
PROVIDERS: Physician Assistant Medical; Emergency Provider Internal Medicine; PCP Internal Medicine
DX: N64.4 Mastodynia (principal); N76.0 Acute vaginitis; Z79.899 Other long term (current) drug therapy
CPT/HCPCS: 76642; 81001; 81003; 81025; 87480; 87510; 87660; 99284

== ENCOUNTER 2020-11-14 09:53 | Emergency (ER) | payer BC, SELFPAY ==
[2020-11-14 10:05] VITALS: BP 138/82; PULSE 94; RESP 20; TEMP 37.2; O2SAT 100; BMI 29.2
--- NOTE | 2020-11-14 10:25 | XR_ITS ---
EXAMINATION: XR CHEST CLINICAL INFORMATION: Chest pain. COMPARISON: Chest radiograph 08/26/2020. TECHNIQUE: Frontal view of the chest was obtained. FINDINGS: The cardiomediastinal silhouette is within normal limits. There is no evidence of consolidation or edema. No evidence of pneumothorax or pleural effusion. No acute osseous findings. XR/XR chest 1V IMPRESSION: No evidence of acute pulmonary disease.
--- NOTE | 2020-11-14 10:25 | ECG_ITS ---
Test Reason : SOB Blood Pressure : / mmHG Vent. Rate : 096 BPM Atrial Rate : 096 BPM P-R Int : 146 ms QRS Dur : 072 ms QT Int : 352 ms P-R-T Axes : 059 021 020 degrees QTc Int : 444 ms Normal sinus rhythm Normal ECG When compared with ECG of 11-SEP-2020 11:57, No significant change was found Referred By: Wale Angelo Electronically Signed By:MIKE WATKINS MD
--- NOTE | 2020-11-14 10:37 | ED_ITS ---
HPI - Chest Pain General Chief Complaint: Chest Pain Stated Complaint: COVID SYMPTOMS Time Seen by Provider: 11/14/20 10:02 Source: patient Mode of arrival: ambulatory Limitations: no limitations History of Present Illness HPI narrative: Patient presents ED for left-sided chest pain since last night. Patient denies any coughing, fever, chills, leg swelling, calf pain, redness, recent surgery, recent long travel, or any oral control use. Patient denies anyone else at home having COVID like symptoms. MD complaint: chest pain Related Data Previous Rx's Medication Instructions Recorded diazepam [Valium] 5 mg PO TID PRN #10 tab 08/26/20 naproxen 500 mg PO BID PRN #10 tab 08/26/20 meclizine 25 mg PO TID PRN #14 tab 09/11/20 valacyclovir [Valtrex] 1,000 mg PO BID 7 Days #14 tab 09/11/20 acetaminophen-codeine 1 tab PO Q8H PRN #10 tab NS 09/17/20 fluconazole [Diflucan] 150 mg PO Q3D #2 tab NS 09/17/20 metronidazole [Flagyl] 500 mg PO BID 7 Days #14 tab NS 09/17/20 cyclobenzaprine 10 mg PO TID PRN #15 tab 11/14/20 Allergies Allergy/AdvReac Type Severity Reaction Status Date / Time tramadol [TRAMADOL] Allergy Severe ITCHING Verified 08/26/20 11:22 Review of Systems Review of Systems: Yes all other systems are reviewed and are negative Constitutional: Constitutional: Reports as per HPI, Reports no additional constitutional complaints and Denies snoring Eyes: Eyes: Reports as per HPI and Reports no additional eye complaints ENT: Reports system reviewed and no additional complaints, except as documented and Reports as per HPI Cardiovascular: Cardiovascular: Reports as per HPI, Reports no additional cardiovascular complaints, Reports chest pain, Denies dyspnea, Denies dyspnea on exertion, Denies orthopnea and Denies paroxysmal nocturnal dyspnea Respiratory: Respiratory: Reports as per HPI, Reports no additional respiratory complaints, Reports no additional respiratory complaints, Denies change in phlegm color, Denies chest congestion, Denies cough, Denies hemoptysis, Denies excessive phlegm production, Denies pain on inspiration, Denies pain with cough, Denies dyspnea, Denies dyspnea on exertion, Denies snoring, Denies stridor and Denies wheezing Gastrointestinal: Gastrointestinal: Reports as per HPI and Reports no additional gastrointestinal complaints Genitourinary: Genitourinary: Reports no additional female genitourinary complaints and Reports as per HPI Musculoskeletal: Musculoskeletal: Reports no additional musculoskeletal complaints and Reports as per HPI Neurologic: Reports system reviewed and no additional complaints, except as d ocumented and Reports as per HPI Psychiatric: Psychiatric: Reports no additional psychiatric complaints and Reports as per HPI Allergic/Immunologic: Allergic/Immunologic: Denies wheezing [facility] Social History Social History Alcohol intake: never Smoking Status: Current every day smoker Use of substances other than those prescribed or required for medical reasons: No Advance Directives: No Advance Directives Information Provided: No Physical Exam Vital Signs: Vital Signs: Last Vital Signs Temp 98.5 F 11/14/20 12:44 Pulse 106 H 11/14/20 12:44 Resp 16 11/14/20 12:44 BP 137/92 H 11/14/20 12:44 Pulse Ox 97 11/14/20 12:44 Body Mass Index 29.2 Const: General: cooperative, healthy appearing, comfortable, no acute distress, well developed, alert, awake and Physically active Orientation/consciousness: patient oriented x3 HENMT: Head: Yes normal to inspection and Yes No palpable skull fracture present Eyes: General: appearance normal, both eyes and all related structures Neck: Neck: Yes normal visual inspection, Yes full ROM, Yes no lymphadenopathy, Yes no meningeal signs, Yes trachea midline, Yes supple and No tender Chest: Other: Positive for left upper chest wall tenderness on palpation. Breast negative for any swelling, redness, nipple discharge. Chest palpation & inspection: normal inspection of the chest Resp: Effort & Inspection: normal respiratory effort and able to speak in complete sentences Auscultation: clear to auscultation bilaterally Cardio: Jugular venous distension: no JVD Heart sounds: S1 normal heart sound present and S2 normal heart sound present GI: Inspection: Yes normal to inspection and No abdominal wall ecchymosis Palpation (GI): Soft to palpation, not firm, nontender, no guarding and not rigid : General: No CVA tenderness and Yes no CVA tenderness Back/Spine/Pelvis: Back: no CVA tenderness, No CVA tenderness and No back ten derness Skin: General skin exam: no rashes or lesions noted Neuro: General: patient oriented x3, gait normal, no meningeal signs and CN's II-XI intact bilaterally Cranial nerves: Yes CN's II-XII intact bilaterally Extrem: Other: Lower extremity negative for any swelling, pitting edema, redness or calf tenderness. General: Yes normal to inspection and Yes full ROM Psych: Appearance: grossly normal, well kempt and not disheveled Course Course Course Narrative: Patient has chest wall tenderness. Most likely costochondritis. Will do basic labs including EKG to make sure no signs of AL. Will do troponin at least 1 set since patient having chest wall tenderness to palpation since yesterday. Also will do them to make sure there is no risk of PE. Vital signs are stable. Will send for COVID swab. Reevaluation(s) Reevaluation #1: Patient's EKG is normal. Patient D-dimer came back negative. Patient's PERC score is 0. Patient's troponin after having chest wall pain for over 10 hours came back negative. Chest x-ray negative for pneumonia and COVID swab came back negative. Patient is safe for discharge Time: 12:32 MDM - Chest Pain MDM Narrative Medical decision making narrative: Chest wall pain Lab Data Result diagrams: 11/14/20 10:50 11/14/20 10:50 Labs: Lab Results 11/14/20 11/14/20 11/14/20 Range/Units 10:50 10:50 10:50 WBC 9.4 (4.8-10.8) X10*3/uL RBC 4.60 (4.20-5.50) X10*6/uL Hgb 12.7 (12.0-16.0) g/dl Hct 39.2 (37-47) % MCV 85.2 (80-98) fL MCH 27.6 (27.0-33.0) pg MCHC 32.4 (31.0-35.0) g/dl RDW 15.7 (11.0-16.0) % Plt Count 260 (160-400) X10*3/uL MPV 10.6 (9.4-12.3) fL Immature Gran % (Auto) 0.2 (0.0-0.4) % Neut % (Auto) 66.0 (45-73) % Lymph % (Auto) 22.6 (20-40) % [place] % (Auto) 6.1 (2-11) % Eos % (Auto) 4.6 H (0-4) % Baso % (Auto) 0.5 (0-2) % Lymph # (Auto) 2.1 (1.2-4.9) X10*3/uL [place] # (Auto) 0.6 (0.1-1.2) X10*3/uL Eos # (Auto) 0.4 (0.0-0.4) X10*3/uL Baso # (Auto) 0.1 (0.0-0.2) X10*3/uL Abs Immat Gran (auto) 0.02 (0.00-0.03) X10*3/uL Absolute Neuts (auto) 6.2 (2.0-8.3) X10*3/uL Absolute Nucleated RBC 0.000 (0.0-0.012) X10*3/uL Nucleated RBC % (auto) 0.0 (0.0-0.2) /100WBC PT 11.4 (10.8-13.0) SEC INR 1.0 (0.9-1.1) APTT 34.6 (24.1-38.0) SEC D-Dimer < 200 NG/ML Sodium 137 (135-145) mmol/L Potassium 4.7 (3.3-5.1) mmol/l Chloride 106 (96-108) mmol/L Carbon Dioxide 23 (22-29) mmol/L Anion Gap 13 (12-20) BUN 19 H D (9-16) mg/dL Creatinine 0.77 (0.5-1.4) mg/dL Estim Creat Clear Calc 92.4 Estimated GFR > 60 Random Glucose 86 (60-115) mg/dL Calcium 8.8 (8.4-10.2) mg/dL Ferritin 57 (10-122) ng/mL Total Bilirubin 0.2 (0.0-1.0) mg/dL AST 18 (5-31) U/L ALT 19 (0-31) U/L Alkaline Phosphatase 84 D (39-117) U/L Lactate Dehydrogenase 174 (122-220) U/L Troponin I High Sens (<3.5-17.0) ng/L B-Natriuretic Peptide (<100) pg/mL Total Protein 6.8 (6.5-8.0) g/dL Albumin 4.0 (3.5-5.0) g/dL Procalcitonin ng/mL Coronavirus (PCR) (Negative) Influenza Type A (PCR) (Negative) Influenza Type B (PCR) (Negative) RSV RNA Qual (PCR) (Negative) 11/14/20 11/14/20 11/14/20 Range/Units 10:50 10:50 10:53 WBC (4.8-10.8) X10*3/uL RBC (4.20-5.50) X10*6/uL Hgb (12.0-16.0) g/dl Hct (37-47) % MCV (80-98) fL MCH (27.0-33.0) pg MCHC (31.0-35.0) g/dl RDW (11.0-16.0) % Plt Count (160-400) X10*3/uL MPV (9.4-12.3) fL Immature Gran % (Auto) (0.0-0.4) % Neut % (Auto) (45-73) % Lymph % (Auto) (20-40) % [place] % (Auto) (2-11) % Eos % (Auto) (0-4) % Baso % (Auto) (0-2) % Lymph # (Auto) (1.2-4.9) X10*3/uL [place] # (Auto) (0.1-1.2) X10*3/uL Eos # (Auto) (0.0-0.4) X10*3/uL Baso # (Auto) (0.0-0.2) X10*3/uL Abs Immat Gran (auto) (0.00-0.03) X10*3/uL Absolute Neuts (auto) (2.0-8.3) X10*3/uL Absolute Nucleated RBC (0.0-0.012) X10*3/uL Nucleated RBC % (auto) (0.0-0.2) /100WBC PT (10.8-13.0) SEC INR (0.9-1.1) APTT (24.1-38.0) SEC D-Dimer NG/ML Sodium (135-145) mmol/L Potassium (3.3-5.1) mmol/l Chloride (96-108) mmol/L Carbon Dioxide (22-29) mmol/L Anion Gap (12-20) BUN (9-16) mg/dL Creatinine (0.5-1.4) mg/dL Estim Creat Clear Calc Estimated GFR Random Glucose (60-115) mg/dL Calcium (8.4-10.2) mg/dL Ferritin (10-122) ng/mL Total Bilirubin (0.0-1.0) mg/dL AST (5-31) U/L ALT (0-31) U/L Alkaline Phosphatase (39-117) U/L Lactate Dehydrogenase (122-220) U/L Troponin I High Sens < 3.5 (<3.5-17.0) ng/L B-Natriuretic Peptide < 10 (<100) pg/mL Total Protein (6.5-8.0) g/dL Albumin (3.5-5.0) g/dL Procalcitonin 0.03 ng/mL Coronavirus (PCR) NEGATIVE (Negative) Influenza Type A (PCR) NEGATIVE (Negative) Influenza Type B (PCR) NEGATIVE (Negative) RSV RNA Qual (PCR) NEGATIVE (Negative) ECG Data ECG #1: Interpretation: Normal sinus rhythm. Ventricular rate 96. [place] interval 146. QRS 72. QTC 444. Normal EKG. Negative STEMI Discharge Plan Discharge Clinical Impression: Atypical chest pain Patient Disposition: Home, Self-Care Instructions: Chest Wall Pain (ED) Additional Instructions: Return to the ED immediately for any worsening chest pain, shortness of breath, swelling of lower extremities, coughing up blood, fever, chills, or any other concerning symptoms. You can take [id number] Motrin. Prescriptions: New cyclobenzaprine 10 mg tablet 10 mg PO TID PRN (Reason: muscle spasm) Qty: 15 RF: 0 No Action meclizine 25 mg tablet 25 mg PO TID PRN (Reason: dizziness) Qty: 14 RF: 0 valacyclovir [Valtrex] 1 gram tablet 1,000 mg PO BID 7 Days Qty: 14 RF: 0 fluconazole [Diflucan] 150 mg tablet 150 mg PO Q3D Qty: 2 RF: 0 metronidazole [Flagyl] 500 mg tablet 500 mg PO BID 7 Days Qty: 14 RF: 0 acetaminophen-codeine 300-30 mg tablet 1 tab PO Q8H PRN (Reason: pain) Qty: 10 RF: 0 naproxen 500 mg tablet 500 mg PO BID PRN (Reason: pain) Qty: 10 RF: 0 diazepam [Valium] 5 mg tablet 5 mg PO TID PRN (Reason: pain) Qty: 10 RF: 0 Referrals: Pascual Cummins MD [Primary Care Provider] - 2 days (Chest wall pain. EKG normal. Troponin negative. D-dimer negative. COVID swab negative. Chest x-ray normal) Interventions: ED Discharge Assessment Last Done: 11/14/20 12:54 Discharge Date/Time: 11/14/20 12:55 Print Language: Persian
[2020-11-14 11:02] VITALS: BP 125/82; PULSE 82; RESP 15; O2SAT 98
[2020-11-14 11:03] LABS: MANUAL DIFF FLAG NO
[2020-11-14 11:11] LABS: Basophils Absolute Auto 0.1 X10*3/uL (0.0-0.2); Basophils Percent Auto 0.5 % (0-2); Eosinophils Absolute Auto 0.4 X10*3/uL (0.0-0.4); Eosinophils Percent Auto 4.6 % (0-4); Hematocrit 39.2 % (37-47); Hemoglobin 12.7 g/dl (12.0-16.0); Imm Gran Abs Auto 0.02 X10*3/uL (0.00-0.03); Imm Gran Pct Auto 0.2 % (0.0-0.4); Lymphocytes Absolute Auto 2.1 X10*3/uL (1.2-4.9); Lymphocytes Percent Auto 22.6 % (20-40); Mean Corpuscular HGB Conc 32.4 g/dl (31.0-35.0); Mean Corpuscular Hemoglobin 27.6 pg (27.0-33.0); Mean Corpuscular Volume 85.2 fL (80-98); Mean Platelet Volume 10.6 fL (9.4-12.3); Monocytes Absolute Auto 0.6 X10*3/uL (0.1-1.2); Monocytes Percent Auto 6.1 % (2-11); Neutrophils Absolute Auto 6.2 X10*3/uL (2.0-8.3); Platelet Count 260 X10*3/uL (160-400); Red Cell Distribution Width 15.7 % (11.0-16.0); White Blood Count 9.4 X10*3/uL (4.8-10.8)
[2020-11-14 11:16] LABS: Prothrombin Time 11.4 SEC (10.8-13.0)
[2020-11-14 11:19] LABS: Partial Thromboplastin Time 34.6 SEC (24.1-38.0)
[2020-11-14 11:21] LABS: D Dimer < 200 NG/ML
[2020-11-14 11:44] LABS: Alanine Aminotransferase 19 U/L (0-31); Alkaline Phosphatase 84 U/L (39-117); Anion Gap 13 (12-20); Aspartate Amino Transferase 18 U/L (5-31); Bilirubin Total 0.2 mg/dL (0.0-1.0); Blood Urea Nitrogen 19 mg/dL (9-16); Calcium 8.8 mg/dL (8.4-10.2); Carbon Dioxide 23 mmol/L (22-29); Chloride 106 mmol/L (96-108); Creatinine Clr Calc Pharmacy 92.4; Estimated Glomerular Filt Rate > 60; Glucose Random 86 mg/dL (60-115); Lactate Dehydrogenase 174 U/L (122-220); Potassium 4.7 mmol/l (3.3-5.1); Sodium 137 mmol/L (135-145); Total Protein 6.8 g/dL (6.5-8.0)
[2020-11-14 11:45] LABS: B Type Natriuretic Peptide < 10 pg/mL (<100); Troponin-I High Sensitivity < 3.5 ng/L (<3.5-17.0)
[2020-11-14 11:49] LABS: Influenza A PCR NEGATIVE (Negative); Influenza B PCR NEGATIVE (Negative); Resp Syncy Virus RNA Qual PCR NEGATIVE (Negative); SARS COV2 PCR INHOUSE NEGATIVE (Negative)
[2020-11-14 11:59] LABS: Procalcitonin 0.03 ng/mL
[2020-11-14 12:08] LABS: Ferritin 57 ng/mL (10-122)
[2020-11-14 12:44] VITALS: BP 137/92; PULSE 106; RESP 16; TEMP 36.9; O2SAT 97
== END 2020-11-14 12:55 | disposition home or self-care (01) ==
PROVIDERS: Physician Assistant; Emergency Provider Emergency Medicine Emergency Medical Services; PCP Internal Medicine
DX: R07.89 Other chest pain (principal); F17.200 Nicotine dependence, unspecified, uncomplicated; Z71.6 Tobacco abuse counseling; Z11.59 Encounter for screening for other viral diseases; Z79.899 Other long term (current) drug therapy
CPT/HCPCS: 0241U; 36415; 71045; 80053; 82728; 83615; 83880; 84145; 84484; 85025; 85379; 85610; 85730; 93005; 99283; 99285

== ENCOUNTER 2021-01-19 12:06 | Emergency (ER) | payer BC, SELFPAY ==
[2021-01-19 13:46] VITALS: BP 112/65; PULSE 95; RESP 18; TEMP 37; O2SAT 100; BMI 28.3
--- NOTE | 2021-01-19 14:41 | ED_ITS ---
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 She tells me that she has had back pain for 6 months to 1 year and had been taking naproxen and Flexeril which improved her pain. For the last 3 days she has had increasing pain and ran out of her medications. She does when she has pain in her low back as well as her upper back. No radiation of pain. No numbness or tingling. No saddle anesthesia. No bowel or bladder incontinence. The patient is ambulatory. MD elicited complaint: back pain Related Data Previous Rx's Medication Instructions Recorded diazepam [Valium] 5 mg PO TID PRN #10 tab 08/26/20 naproxen 500 mg PO BID PRN #10 tab 08/26/20 meclizine 25 mg PO TID PRN #14 tab 09/11/20 valacyclovir [Valtrex] 1,000 mg PO BID 7 Days #14 tab 09/11/20 acetaminophen-codeine 1 tab PO Q8H PRN #10 tab NS 09/17/20 fluconazole [Diflucan] 150 mg PO Q3D #2 tab NS 09/17/20 metronidazole [Flagyl] 500 mg PO BID 7 Days #14 tab NS 09/17/20 cyclobenzaprine 10 mg PO TID PRN #15 tab 11/14/20 lidocaine [Lidoderm] 1 patch TOPICAL DAILY #15 ea 01/19/21 methocarbamol 750 mg PO Q8H #15 tab 01/19/21 naproxen 375 mg PO BID PRN #20 tab 01/19/21 Allergies Allergy/AdvReac Type Severity Reaction Status Date / Time tramadol [TRAMADOL] Allergy Severe ITCHING Verified 01/19/21 13:46 Review of Systems Review of Systems: Yes all other systems are reviewed and are negative Constitutional: Constitutional: Reports no additional constitutional complaints, Denies body ache(s), Denies chills, Denies fever(s), Denies headache(s) and Denies weakness Eyes: Eyes: Reports no additional eye complaints and Denies change in vision ENT: Reports system reviewed and no additional complaints, except as documented, Denies dizziness, Denies headache(s), Denies nasal congestion, Denies nasal discharge and Denies neck pain Cardiovascular: Cardiovascular: Reports no additional cardiovascular complaints, Denies chest pain, Denies leg edema and Denies dyspnea Respiratory: Respiratory: Reports no additional respiratory complaints, Denies cough and Denies dyspnea Gastrointestinal: Gastrointestinal: Reports no additional gastrointestinal complaints, Denies abdominal pain, Denies diarrhea, Denies nausea and Denies vomiting Genitourinary: Genitourinary: Reports no additional female genitourinary complaints and Denies urinary incontinence Musculoskeletal: Musculoskeletal: Reports no additional musculoskeletal complaints, Reports back pain, Denies arthralgias, Denies joint swelling, Denies neck pain, Denies numbness and Denies tingling Integumentary/Breasts: Skin/Breast: Reports system reviewed and no additional complaints, except as docu and Denies rash Neurologic: Reports system reviewed and no additional complaints, except as documented, Denies Abnormal speech present, Denies dizziness, Denies headac he(s), Denies numbness, Denies tingling and Denies weakness PMFSH Past Medical History Attestation statement: The following information was validated with the patient. Source: old records reviewed and nursing notes reviewed Medical History Patient denies medical problems Social History Social History Alcohol intake: never Smoking Status: Current every day smoker Advance Directives: No Advance Directives Information Provided: No Physical Exam Vital Signs: Vital Signs: Last Vital Signs Temp 98.6 F 01/19/21 13:46 Pulse 95 01/19/21 13:46 Resp 18 01/19/21 13:46 BP 112/65 01/19/21 13:46 Pulse Ox 100 01/19/21 13:46 Body Mass Index 28.3 Const: General: cooperative, healthy appearing, comfortable and no acute distress Orientation/consciousness: patient oriented x3 Limitations: no limitations HENMT: Head: Yes normal to inspection Ears: hearing grossly normal bilaterally General nose exam: Normal external nose present Face and sinus: Yes normal facial exam Mouth: Normal oral and palatal mucosa present Throat: Yes posterior oropharynx normal Eyes: General: appearance normal, both eyes and all related structures Pupils: Equal, round and reactive pupils present Neck: Other: Bilateral trapezius tenderness. No midline tenderness, step-offs or deformities. Palpable muscle spasm Neck: Yes normal visual inspection Chest: Chest palpation & inspection: normal inspection of the chest Resp: Effort & Inspection: normal respiratory effort Auscultation: clear to auscultation bilaterally Cardio: Rate: regular rate Rhythm: regular rhythm Peripheral pulses: Peripheral pulses 2+ throughout GI: Inspection: Yes normal to inspection Palpation (GI): Soft to palpation and nontender Auscultation: normal bowel sounds Back/Spine/Pelvis: Other: Bilateral lumbar soft tissue tenderness with no midline tenderness, step-offs or deformities. Pain is worsened with flexion and extension of the lumbar spine Thoracic/Lumbar Spine: thoracic and lumbar spine normal to inspection Skin: General skin exam: no rashes or lesions noted Neuro: General: patient oriented x3, no focal motor deficits and normal sensation to monofilament Cranial nerves: Yes Equal, round and reactive pupils present Cognition (Neuro): normal cognition Speech: No Abnormal speech present Gait exam (Neuro): Normal gait present Motor exam (neuro): 5/5 motor strength present throughout Extrem: General: Yes normal to inspection Course Course Course Narrative: No midline tenderness. Pain is more musculoskeletal on exam. Normal neurological exam. No red flag symptoms. Patient tells me that she ran out naproxen and flexeril although this helped her pain in the past. Will plan to discharge home with supportive care as well as medications to help with the symptoms. Reviewed worrisome signs and symptoms of when to return to the emergency department. Comfortable discharge home. Discharge Plan Discharge Clinical Impression: Strain of lumbar region, Trapezius muscle spasm Patient Disposition: Home, Self-Care Instructions: Muscle Spasm (ED), Back Pain (ED) Additional Instructions: Heat to the area Gentle stretching No improvement in 2 days then f/u with PCP Prescriptions: New methocarbamol 750 mg tablet 750 mg PO Q8H Qty: 15 RF: 0 naproxen 375 mg tablet 375 mg PO BID PRN (Reason: pain) Qty: 20 RF: 0 lidocaine [Lidoderm] 5 % adhesive patch,medicated 1 patch topical DAILY Qty: 15 RF: 0 No Action meclizine 25 mg tablet 25 mg PO TID PRN (Reason: dizziness) Qty: 14 RF: 0 valacyclovir [Valtrex] 1 gram tablet 1,000 mg PO BID 7 Days Qty: 14 RF: 0 fluconazole [Diflucan] 150 mg tablet 150 mg PO Q3D Qty: 2 RF: 0 metronidazole [Flagyl] 500 mg tablet 500 mg PO BID 7 Days Qty: 14 RF: 0 acetaminophen-codeine 300-30 mg tablet 1 tab PO Q8H PRN (Reason: pain) Qty: 10 RF: 0 naproxen 500 mg tablet 500 mg PO BID PRN (Reason: pain) Qty: 10 RF: 0 diazepam [Valium] 5 mg tablet 5 mg PO TID PRN (Reason: pain) Qty: 10 RF: 0 cyclobenzaprine 10 mg tablet 10 mg PO TID PRN (Reason: muscle spasm) Qty: 15 RF: 0 Referrals: Carissa Panda DO [Primary Care Provider] - 2 days Stand Alone Forms: Work/School Release Interventions: ED Discharge Assessment Last Done: 01/19/21 14:40 Discharge Date/Time: 01/19/21 14:41 Print Language: Sinhala
== END 2021-01-19 14:41 | disposition home or self-care (01) ==
PROVIDERS: Emergency Provider Emergency Medicine; PCP Internal Medicine
DX: S39.012A Strain of muscle, fascia and tendon of lower back, initial encounter (principal); X58.XXXA Exposure to other specified factors, initial encounter; M62.838 Other muscle spasm; F17.200 Nicotine dependence, unspecified, uncomplicated; Y93.9 Activity, unspecified; Y92.9 Unspecified place or not applicable; Y99.9 Unspecified external cause status
CPT/HCPCS: 99283

== ENCOUNTER 2021-02-12 16:54 | Emergency (ER) | payer BC, SELFPAY ==
--- NOTE | ~2021-02-12 | MR_ITS ---
EXAMINATION: BRAIN MRI WITHOUT CONTRAST CLINICAL INFORMATION: Abnormal soft tissue neck CT scan. COMPARISON: Soft tissue neck CT scan 02/12/2021. TECHNIQUE: Multiplanar MR imaging of the brain was performed without contrast. FINDINGS: There is a Chiari type I malformation with the caudal tips of the cerebellar tonsils extending 1.8 cm below the foramen magnum. There is crowding at the foramen magnum and distortion of the upper cervical cord. This finding is best illustrated on sagittal image 13 of 23 series 3. There is no acute territorial infarct. No pathological magnetic susceptibility artifact. Intracranial vascular flow voids are maintained. There is no midline shift or hydrocephalus. No mastoid middle ear effusion. No active paranasal sinus disease. MR/MR head/brain wo con IMPRESSION: Chiari type I malformation with the tips of the cerebellar tonsils extending 1.8 cm below the foramen magnum.
--- NOTE | ~2021-02-12 | CT_ITS ---
EXAMINATION: CT SOFT TISSUE NECK WITHOUT CONTRAST CLINICAL INFORMATION: Anterior neck pain. COMPARISON: No relevant prior imaging. TECHNIQUE: Helical imaging was performed in the axial plane with generation of coronal and sagittal reformatted images. This CT examination was performed using dose optimization techniques as appropriate, variously including the following: *Automated exposure control *Adjustment of mA and/or kV according to patient size (this includes techniques or standardized protocols for targeted exams where dose is matched to indication/reason for exam; i.e. extremities or head) *Use of iterative reconstruction technique DLP: 515 mGy-cm FINDINGS: The diagnostic accuracy of this examination is limited due to the absence of intravenous contrast. Grossly no abnormal inflammatory changes within the subcutaneous soft tissues. No identifiable mass or collection. Pharyngeal mucosal spaces are symmetric. Parapharyngeal and retromaxillary fat is preserved. Marketing Traffic Manager spaces are symmetric. The parotid and submandibular glands are normal. The tongue base and epiglottis are normal. Preepiglottic fat is preserved. Glottic and subglottic airways are patent. The thyroid gland is normal and the remainder of the visualized visceral soft tissues are normal. Lung apices are clear. Aortic arch apex is normal. Carotid spaces are unremarkable. There is no acute osseous finding. Specifically no worrisome lytic or blastic osseous lesion. Grossly no canal compromise. The skull base is intact. No mastoid or middle ear effusion. No active paranasal sinus disease. Limited visualization of the intracranial anatomy reveals low-lying tonsils which extend at least 1 cm below the foramen magnum. CT/CT soft tissue neck wo con IMPRESSION: Although suboptimally assessed on this examination there appears to be a Chiari type I malformation with the cerebellar tonsils extending as far as 1 cm below the foramen magnum. A dedicated brain MRI therefore recommended for better anatomic characterization of this finding. Otherwise unremarkable soft tissue neck CT scan in that there is no identifiable mass, collection, inflammation. No pathologically enlarged cervical lymph nodes.
[2021-02-12 17:53] VITALS: BP 124/65; PULSE 80; RESP 16; TEMP 36.7; O2SAT 99; BMI 29.2
--- NOTE | 2021-02-12 19:21 | ED.URI ---
HPI - URI/Sore Throat General Chief Complaint: Upper Respiratory Symptoms Stated Complaint: Throat pain Time Seen by Provider: 02/12/21 18:04 Source: patient Mode of arrival: ambulatory Limitations: language barrier (Martiniquais-speaking) History of Present Illness HPI Narrative: A 40-year-old female with a past medical history of endometritis presenting to the ED with complaints of pain under the chin/upper anterior neck area for the past 2 days worse today. Reports that she was recently tested for COVID and continues to test negative. Denies any fevers, trouble swallowing or pain with swallowing, lymphadenopathy, chest pain, shortness of breath, nausea/vomiting or any symptoms or any other symptoms complaints or concerns at this time. Denies recent travel or sick contacts. MD elicited complaint: other (Under chin/neck pain) Onset (ago): day(s) (Two days) Consistency: constant Severity: mild Able to tolerate fluids by mouth: Yes Exacerbating factors: other (Palpation) Relieving factors: nothing Associated symptoms: denies other symptoms Treatments prior to arrival: none Related Data Previous Rx's Medication Instructions Recorded diazepam [Valium] 5 mg PO TID PRN #10 tab 08/26/20 naproxen 500 mg PO BID PRN #10 tab 08/26/20 meclizine 25 mg PO TID PRN #14 tab 09/11/20 valacyclovir [Valtrex] 1,000 mg PO BID 7 Days #14 tab 09/11/20 acetaminophen-codeine 1 tab PO Q8H PRN #10 tab NS 09/17/20 fluconazole [Diflucan] 150 mg PO Q3D #2 tab NS 09/17/20 metronidazole [Flagyl] 500 mg PO BID 7 Days #14 tab NS 09/17/20 cyclobenzaprine 10 mg PO TID PRN #15 tab 11/14/20 lidocaine [Lidoderm] 1 patch TOPICAL DAILY #15 ea 01/19/21 methocarbamol 750 mg PO Q8H #15 tab 01/19/21 naproxen 375 mg PO BID PRN #20 tab 01/19/21 acetaminophen [Tylenol Extra 1,000 mg PO QID PRN #14 tab 02/12/21 Strength] cyclobenzaprine 10 mg PO Q8H #10 tab 02/12/21 ibuprofen 800 mg PO Q8H PRN #14 tab 02/12/21 oxycodone 5 mg PO BID PRN #10 tab 02/12/21 Allergies Allergy/AdvReac Type Severity Reaction Status Date / Time tramadol [TRAMADOL] Allergy Severe ITCHING Verified 01/19/21 13:46 Review of Systems Review of Systems: Constitutional : No trauma, No Weight loss, No Fever, No Chills, ENT/Mouth : No Hearing loss, No Ear Pain, No Nasal Congestion, No Sinus Pain, No Hoarseness, No sore throat, No Rhinorrhea, No Swallowing Difficulty Cardiovascular : No Chest Pain, No SOB Respiratory : No Cough, No Dyspnea Gastrointestinal : No Nausea, No Vomiting, No Diarrhea, No abdominal Pain, No Hematochezia, No Melena Genitourinary : No Dysuria, No Urinary Frequency, No Hematuria, No Urinary or Bowel Incontinence/retention Musculoskeletal : + Neck pain, No Back pain, No joint stiffness, No joint swelling Skin : No Skin Lesions, No rash or signs of infection Neuro : No Tingling, No paresthesias, No Weakness, No radiation, No Numbness, No headache, no loss of bowel or bladder incontinence, no saddle anesthesia Denies history of IV drug usage. Yes all other systems are reviewed and are negative PMFSH Past Medical History Attestation statement: The following information was validated with the patient. Medical History Patient denies medical problems Social History Social History Alcohol intake: never Smoking Status: Current every day smoker Smoked in Last 30 Days: No Use of substances other than those prescribed or required for medical reasons: No Advance Directives: No Advance Directives Information Provided: No Physical Exam Vital Signs: Vital Signs: Last Vital Signs Temp 97.6 F 02/12/21 20:12 Pulse 79 02/12/21 20:12 Resp 18 02/12/21 20:12 BP 112/66 02/12/21 20:12 Pulse Ox 100 02/12/21 20:12 Body Mass Index 29.2 vital signs have been reviewed as normal and appeared to be correct. Blood pressure normal. Heart rate normal. Respiration rate normal. Temperature normal. Oxygen saturation normal. Appearance: Alert. Oriented X3. No acute distress. Head: Normal external exam. Normocephalic. Atraumatic. Eyes: PERRLA. EOMI. Conjunctiva and sclera normal. Eyelids normal. ENT: Pharynx mildly erythematous. normal. No exudate noted. Uvula midline. Moist mucous membranes. No trismus noted. No drooling noted. No muffled voice noted. Neck: Normal inspection. Neck supple. FROM. No adenopathy. Thyroid Normal. Trachea midline. No meningeal signs. No neck mass noted. Tender to palpation of anterior upper neck. No obvious deformities or soft tissue swelling or rashes noted. No lymphadenopathy noted. No mid cervical or paracervical musculature tenderness. No step-offs or deformities noted. Patient neuro intact bilaterally and distally on all 4 extremities. Reflexes intact bilaterally and distally in all 4 extremities. No rashes/lesion/induration/fluctuance or signs of infection noted. No edema noted. CVS: Normal heart rate and rhythm. Heart sound normal. No murmurs noted. Pulses normal throughout. Respiratory: No respiratory distress. Painless inspiration. Breath sounds normal. No wheezes/rales/rhonchi noted. Chest nontender. No accessory muscle usage noted or decreased air movement noted. Back: Full range of motion noted. No obvious deformities, or edema. Full ROM in back and lower extremities. Skin: Skin warm and dry. Normal skin color. Normal skin turgor. No rashes/lesions/lacerations noted. Extremities: Extremities exhibit normal range of motion. Extremities nontender. Neuro: Oriented X 3. No motor deficit. No sensory deficit. Reflexes normal. Normal steady gait. Course Course Course Narrative: A 40-year-old female with a past medical history of endometritis presenting to the ED with complaints of pain under the chin/upper anterior neck area for the past 2 days worse today. - will obtain a rapid strep although patient denies any pain with swallowing or sore throat and soft tissue neck CT then re-evaluate. Reevaluation(s) Reevaluation #1: - soft tissue neck CT scan revealed Chiari type I malformation and they recommended MRI therefore an MRI was obtained and revealed Chiari type I malformation with the tips of the cerebellar tonsils extending 1.8 cm below the foramen magnum. - therefore will DC home with symptomatic treatment referral to Dr. Jurado the neurologist I gave a copy of the patient's MRI results and instructions return if any new or worsening symptoms to follow up with Dr. Jurado the neurologist. Patient understands agrees with this plan. Time: 21:39 MDM - URI/Sore Throat Medical Records Attestation: I reviewed the patient's medical records. Imaging Data MRI of brain without contrast: Attestation: I personally reviewed and interpreted this imaging study as follows: Radiologist's impression: FINDINGS: There is a Chiari type I malformation with the caudal tips of the cerebellar tonsils extending 1.8 cm below the foramen magnum. There is crowding at the foramen magnum and distortion of the upper cervical cord. This finding is best illustrated on sagittal image 13 of 23 series 3. There is no acute territorial infarct. No pathological magnetic susceptibility artifact. Intracranial vascular flow voids are maintained. There is no midline shift or hydrocephalus. No mastoid middle ear effusion. No active paranasal sinus disease. MR/MR head/brain wo con IMPRESSION: Chiari type I malformation with the tips of the cerebellar tonsils extending 1.8 cm below the foramen magnum. CT scan of soft tissue neck: Attestation: I personally reviewed and interpreted this imaging study as follows: Radiologist's impression: FINDINGS: The diagnostic accuracy of this examination is limited due to the absence of intravenous contrast. Grossly no abnormal inflammatory changes within the subcutaneous soft tissues. No identifiable mass or collection. Pharyngeal mucosal spaces are symmetric. Parapharyngeal and retromaxillary fat is preserved. Customer Records Division Supervisor spaces are symmetric. The parotid and submandibular glands are normal. The tongue base and epiglottis are normal. Preepiglottic fat is preserved. Glottic and subglottic airways are patent. The thyroid gland is normal and the remainder of the visualized visceral soft tissues are normal. Lung apices are clear. Aortic arch apex is normal. Carotid spaces are unremarkable. There is no acute osseous finding. Specifically no worrisome lytic or blastic osseous lesion. Grossly no canal compromise. The skull base is intact. No mastoid or middle ear effusion. No active paranasal sinus disease. Limited visualization of the intracranial anatomy reveals low-lying tonsils which extend at least 1 cm below the foramen magnum. CT/CT soft tissue neck wo con IMPRESSION: Although suboptimally assessed on this examination there appears to be a Chiari type I malformation with the cerebellar tonsils extending as far as 1 cm below the foramen magnum. A dedicated brain MRI therefore recommended for better anatomic characterization of this finding. Otherwise unremarkable soft tissue neck CT scan in that there is no identifiable mass, collection, inflammation. No pathologically enlarged cervical lymph nodes. Discharge Plan Discharge Clinical Impression: Chiari I malformation Patient Disposition: Home, Self-Care Instructions: Chiari Malformation (DC) Prescriptions: New cyclobenzaprine 10 mg tablet 10 mg PO Q8H Qty: 10 RF: 0 ibuprofen 800 mg tablet 800 mg PO Q8H PRN (Reason: pain) Qty: 14 RF: 0 acetaminophen [Tylenol Extra Strength] 500 mg tablet 1,000 mg PO QID PRN (Reason: fever or pain) Qty: 14 RF: 0 oxycodone 5 mg tablet 5 mg PO BID PRN (Reason: pain) Qty: 10 RF: 0 No Action meclizine 25 mg tablet 25 mg PO TID PRN (Reason: dizziness) Qty: 14 RF: 0 valacyclovir [Valtrex] 1 gram tablet 1,000 mg PO BID 7 Days Qty: 14 RF: 0 fluconazole [Diflucan] 150 mg tablet 150 mg PO Q3D Qty: 2 RF: 0 metronidazole [Flagyl] 500 mg tablet 500 mg PO BID 7 Days Qty: 14 RF: 0 acetaminophen-codeine 300-30 mg tablet 1 tab PO Q8H PRN (Reason: pain) Qty: 10 RF: 0 naproxen 500 mg tablet 500 mg PO BID PRN (Reason: pain) Qty: 10 RF: 0 diazepam [Valium] 5 mg tablet 5 mg PO TID PRN (Reason: pain) Qty: 10 RF: 0 cyclobenzaprine 10 mg tablet 10 mg PO TID PRN (Reason: muscle spasm) Qty: 15 RF: 0 methocarbamol 750 mg tablet 750 mg PO Q8H Qty: 15 RF: 0 naproxen 375 mg tablet 375 mg PO BID PRN (Reason: pain) Qty: 20 RF: 0 lidocaine [Lidoderm] 5 % adhesive patch,medicated 1 patch topical DAILY Qty: 15 RF: 0 Referrals: Marco Jurado MD [Physician] - 2 days (Chiari Malformation ) Print Language: Martiniquais
[2021-02-12 20:12] VITALS: BP 112/66; PULSE 79; RESP 18; TEMP 36.4; O2SAT 100
--- NOTE | 2021-02-12 21:50 | PC.NURSE ---
1ST ENCOUNTER WITH PATIENT FOR DC PURPOSES. PT AWAKE, ALERT AND ORIENTED X 3. SKIN WARM AND DRY. RESP UNLABORED. DENIES N/V. PT DRESSED AND AMBULATORY IN ROOM TALKING ON PHONE. NEUROS INTACT. AWARE OF DC PLAN AND AGREEABLE
== END 2021-02-12 21:52 | disposition home or self-care (01) ==
PROVIDERS: Emergency Provider Internal Medicine
DX: G93.5 Compression of brain (principal); J02.9 Acute pharyngitis, unspecified; F17.200 Nicotine dependence, unspecified, uncomplicated
CPT/HCPCS: 70490; 70551; 87071; 87880; 99284

== ENCOUNTER 2021-02-27 15:12 | Emergency (ER) | payer BC, SELFPAY ==
[2021-02-27 16:05] VITALS: BP 132/77; PULSE 102; RESP 16; TEMP 38.8; O2SAT 100; BMI 28.3
[2021-02-27] MEDS: Acetaminophen 325 MG TABLET 650 MG PO (16:14)
[2021-02-27 17:15] LABS: Influenza A PCR NEGATIVE (Negative); Influenza B PCR NEGATIVE (Negative); Resp Syncy Virus RNA Qual PCR NEGATIVE (Negative); SARS COV2 PCR INHOUSE POSITIVE (Negative)
[2021-02-27 17:56] VITALS: PULSE 100; RESP 16; TEMP 36.9
--- NOTE | 2021-02-27 18:25 | ED.URI ---
HPI - URI/Sore Throat General Chief Complaint: Headache Stated Complaint: headache, body aches Time Seen by Provider: 02/27/21 18:24 Source: patient Mode of arrival: ambulatory Limitations: no limitations History of Present Illness HPI Narrative: 40-year-old female with no significant past medical history presents with 1 day of headaches and body aches. Does not report any chest pain or pressure, palpitations, shortness breath, shortness breath on exertion, edema, abdominal pain, abdominal distention, dysuria, hematuria, or any other concerning symptoms. Onset (ago): day(s) (1) Consistency: constant Severity: mild Able to tolerate fluids by mouth: Yes Exacerbating factors: nothing Relieving factors: nothing Associated symptoms: myalgias and headache Treatments prior to arrival: none Related Data Previous Rx's Medication Instructions Recorded diazepam [Valium] 5 mg PO TID PRN #10 tab 08/26/20 naproxen 500 mg PO BID PRN #10 tab 08/26/20 meclizine 25 mg PO TID PRN #14 tab 09/11/20 valacyclovir [Valtrex] 1,000 mg PO BID 7 Days #14 tab 09/11/20 acetaminophen-codeine 1 tab PO Q8H PRN #10 tab NS 09/17/20 fluconazole [Diflucan] 150 mg PO Q3D #2 tab NS 09/17/20 metronidazole [Flagyl] 500 mg PO BID 7 Days #14 tab NS 09/17/20 cyclobenzaprine 10 mg PO TID PRN #15 tab 11/14/20 lidocaine [Lidoderm] 1 patch TOPICAL DAILY #15 ea 01/19/21 methocarbamol 750 mg PO Q8H #15 tab 01/19/21 naproxen 375 mg PO BID PRN #20 tab 01/19/21 acetaminophen [Tylenol Extra 1,000 mg PO QID PRN #14 tab 02/12/21 Strength] cyclobenzaprine 10 mg PO Q8H #10 tab 02/12/21 ibuprofen 800 mg PO Q8H PRN #14 tab 02/12/21 oxycodone 5 mg PO BID PRN #10 tab 02/12/21 Allergies Allergy/AdvReac Type Severity Reaction Status Date / Time tramadol [TRAMADOL] Allergy Severe ITCHING Verified 01/19/21 13:46 Review of Systems Review of Systems: Constitutional: Positive headache, No Fever, no Chills, positive fatigue, positive Malaise ENT/Mouth: positive sore throat, positive runny nose Eyes: No Discharge Cardiovascular: No Chest Pain, No SOB Respiratory: No Cough, No Sputum, No Wheezing, No Smoke Exposure, No Dyspnea Gastrointestinal: No Nausea, No Vomiting, No Diarrhea Genitourinary: no irregular bleeding, No Dysuria, No Urinary Frequency, No Hematuria, No Urinary Incontinence, No Urgency, No Flank Pain, Musculoskeletal: positive Myalgia Skin: No rash Neuro: Positive Headache Yes all other systems are reviewed and are negative [facility] Past Medical History Attestation statement: The following information was validated with the patient. Source: old records reviewed Medical History (Updated 02/27/21 @ 18:27 by Sidra Flores NP) No known health problems Patient denies medical problems Social History Social History Alcohol intake: never Smoking Status: Current every day smoker Advance Directives: No Advance Directives Information Provided: No Physical Exam Vital Signs: Vital Signs: Last Vital Signs Temp 98.5 F 02/27/21 17:56 Pulse 100 02/27/21 17:56 Resp 16 02/27/21 17:56 BP 132/77 02/27/21 16:05 Pulse Ox 100 02/27/21 16:05 Body Mass Index 28.3 Appearance: Alert. Oriented X3. Mild distress. Eyes: Pupils equal, round and reactive to light. EOMI, sclera nonicteric ENT: Pharynx normal. Moist mucous membranes Neck: Normal inspection. Neck supple. CVS: Tachycardic heart rate and rhythm. Pulses normal. Respiratory: No respiratory distress. Lung sounds clear to auscultation all lobes Abdomen: Soft and nontender. Skin: Skin warm and dry. Normal skin color. Normal skin turgor. Extremities: Moves all extremities against resistance Neuro: No motor deficit. No sensory deficit. Well-balanced well coordinated gait, cranial nerves 2-12 intact Course Course Course Narrative: 40-year-old female with past medical history of endometriosis presents with 1 day of myalgia and headache. She does not report any sick contacts. Patient appears well, nontoxic. Will test for COVID-19. Patient is positive for COVID-19, detailed description findings discussed with patient utilizing interpreter translator. Google translate utilized for discharge instructions. Patient verbalized understanding of and agrees plan of care discharge home MDM - URI/Sore Throat Differential Diagnosis Differential diagnosis: Likely upper respiratory infection, viral infection, bronchitis, influenza and pharyngitis Medical Records Attestation: I reviewed the patient's medical records. Lab Data Attestation: I reviewed the patient's lab results. Labs: Lab Results 02/27/21 Range/Units 16:16 Coronavirus (PCR) POSITIVE A (Negative) Influenza Type A (PCR) NEGATIVE (Negative) Influenza Type B (PCR) NEGATIVE (Negative) RSV RNA Qual (PCR) NEGATIVE (Negative) Discharge Plan Discharge Clinical Impression: COVID-19 Patient Disposition: Home, Self-Care Instructions: COVID-19 (Coronavirus Disease 2019) (ED) Additional Instructions: Te evaluaron para detectar s?ntomas respiratorios superiores, dolor de emerson y flor en el cuerpo. Bañuelos prueba COVID-19 es positiva. Por favor, mantenga las directrices de aislamiento social seg?n las regulaciones estatales y federales. Por favor, alterne Tylenol y Motrin seg?n sea necesario para el control del dolor y la fiebre. Taniya muchos l?quidos. Si los s?ntomas persisten o empeoran, regrese al servicio de emergencias para bañuelos evaluaci?n. Sb por elegir angelina departamento de emergencias para bañuelos evaluaci?n. Por favor, tyler un seguimiento con el m?dico de atenci?n primaria seg?n sea necesario. Regrese al servicio de emergencias para cualquier s?ntoma nuevo, preocupante o que empeore. You were evaluated for upper respiratory symptoms, headache, and body aches. Your COVID-19 test is positive. Please maintain social isolation guidelines per State and Federal regulations. Please alternate Tylenol and Motrin as needed for pain management and fever control. Drink plenty of fluids. If symptoms persist or get worse please return to the emergency department for evaluation. Thank you for choosing this emergency department for evaluation. Please follow-up with primary care physician as needed. Return to the emergency department for any new, concerning, or worsening symptoms. Prescriptions: No Action meclizine 25 mg tablet 25 mg PO TID PRN (Reason: dizziness) Qty: 14 RF: 0 valacyclovir [Valtrex] 1 gram tablet 1,000 mg PO BID 7 Days Qty: 14 RF: 0 fluconazole [Diflucan] 150 mg tablet 150 mg PO Q3D Qty: 2 RF: 0 metronidazole [Flagyl] 500 mg tablet 500 mg PO BID 7 Days Qty: 14 RF: 0 acetaminophen-codeine 300-30 mg tablet 1 tab PO Q8H PRN (Reason: pain) Qty: 10 RF: 0 cyclobenzaprine 10 mg tablet 10 mg PO Q8H Qty: 10 RF: 0 ibuprofen 800 mg tablet 800 mg PO Q8H PRN (Reason: pain) Qty: 14 RF: 0 acetaminophen [Tylenol Extra Strength] 500 mg tablet 1,000 mg PO QID PRN (Reason: fever or pain) Qty: 14 RF: 0 oxycodone 5 mg tablet 5 mg PO BID PRN (Reason: pain) Qty: 10 RF: 0 naproxen 500 mg tablet 500 mg PO BID PRN (Reason: pain) Qty: 10 RF: 0 diazepam [Valium] 5 mg tablet 5 mg PO TID PRN (Reason: pain) Qty: 10 RF: 0 cyclobenzaprine 10 mg tablet 10 mg PO TID PRN (Reason: muscle spasm) Qty: 15 RF: 0 methocarbamol 750 mg tablet 750 mg PO Q8H Qty: 15 RF: 0 naproxen 375 mg tablet 375 mg PO BID PRN (Reason: pain) Qty: 20 RF: 0 lidocaine [Lidoderm] 5 % adhesive patch,medicated 1 patch topical DAILY Qty: 15 RF: 0 Stand Alone Forms: Work/School Release Interventions: ED Discharge Assessment Last Done: 02/27/21 18:40 Discharge Date/Time: 02/27/21 18:54
== END 2021-02-27 18:54 | disposition home or self-care (01) ==
PROVIDERS: Emergency Provider Internal Medicine
DX: U07.1 COVID-19 (principal); R51.9 Headache, unspecified; M79.10 Myalgia, unspecified site; Z79.899 Other long term (current) drug therapy; F17.200 Nicotine dependence, unspecified, uncomplicated; Z71.6 Tobacco abuse counseling
CPT/HCPCS: 0241U; 36415; 99283

== ENCOUNTER 2021-03-06 13:21 | Outpatient (REF) | payer BC, SELFPAY ==
[2021-03-06 14:37] LABS: COVID-19 Test Positive (Negative)
== END 2021-03-06 13:22 | disposition home or self-care (01) ==
LOC: HO.LAB 13:21
PROVIDERS: Visit Provider Internal Medicine
DX: Z20.822 Contact with and (suspected) exposure to COVID-19 (principal)
CPT/HCPCS: 36415; 87635; C9803

== ENCOUNTER 2021-04-28 11:27 | Emergency (ER) | payer BC, SELFPAY ==
[2021-04-28 11:44] VITALS: BP 112/70; PULSE 79; RESP 15; TEMP 36.8; O2SAT 100; BMI 31.2
--- NOTE | 2021-04-28 11:50 | ECG_ITS ---
Test Reason : CP Blood Pressure : / mmHG Vent. Rate : 078 BPM Atrial Rate : 078 BPM P-R Int : 156 ms QRS Dur : 072 ms QT Int : 376 ms P-R-T Axes : -20 022 -07 degrees QTc Int : 428 ms Normal sinus rhythm Cannot rule out Anterior infarct , age undetermined Abnormal ECG When compared with ECG of 14-NOV-2020 10:35, No significant change was found Referred By: Generic ED Physician Electronically Signed By:MIKE WATKINS MD
[2021-04-28 12:35] LABS: MANUAL DIFF FLAG NO
[2021-04-28 12:36] LABS: Basophils Percent Auto 0.2 % (0-2); Eosinophils Absolute Auto 0.2 X10*3/uL (0.0-0.4); Eosinophils Percent Auto 2.1 % (0-4); Hematocrit 40.9 % (37-47); Hemoglobin 13.1 g/dl (12.0-16.0); Imm Gran Abs Auto 0.03 X10*3/uL (0.00-0.03); Imm Gran Pct Auto 0.3 % (0.0-0.4); Lymphocytes Absolute Auto 2.5 X10*3/uL (1.2-4.9); Mean Corpuscular Hemoglobin 27.1 pg (27.0-33.0); Mean Corpuscular Volume 84.5 fL (80-98); Mean Platelet Volume 10.3 fL (9.4-12.3); Monocytes Absolute Auto 0.4 X10*3/uL (0.1-1.2); Monocytes Percent Auto 3.3 % (2-11); Neutrophils Absolute Auto 7.7 X10*3/uL (2.0-8.3); Neutrophils Percent Auto 71.1 % (45-73); Platelet Count 258 X10*3/uL (160-400); Red Blood Count 4.84 X10*6/uL (4.20-5.50); Red Cell Distribution Width 15.5 % (11.0-16.0); White Blood Count 10.8 X10*3/uL (4.8-10.8)
[2021-04-28 13:00] LABS: Anion Gap 10 (12-20); Blood Urea Nitrogen 10 mg/dL (9-16); Calcium 9.4 mg/dL (8.4-10.2); Carbon Dioxide 26 mmol/L (22-29); Chloride 107 mmol/L (96-108); Creatinine Clr Calc Pharmacy 94.2; Estimated Glomerular Filt Rate > 60; Glucose Random 95 mg/dL (60-115); Sodium 139 mmol/L (135-145)
[2021-04-28 13:06] LABS: Troponin-I High Sensitivity < 3.5 ng/L (<3.5-17.0)
--- NOTE | 2021-04-28 14:10 | ED_ITS ---
HPI - Chest Pain General Chief Complaint: Chest Pain Stated Complaint: air in her back, shortness of breath Time Seen by Provider: 04/28/21 14:09 Source: patient and educational interpreter Mode of arrival: ambulatory Limitations: no limitations History of Present Illness HPI narrative: 40 yo female here with bilateral upper back pain and at times panic attacks which makes her heart beat fast started lifting heavy bags up to her [address]th floor apartment pain is reproduceable and has happened in the past tried flexeril, methocarbamol, naproxen without relief complaint: other (upper back pain) Onset (ago): day(s) (4) Timing of current episode: constant Prior episodes: No Onset: during exertion (after lifting heavy things up 4 flights of stairs) Pain location: other (upper back) Pain radiation: other (makes her chest feel tight like her heart is fast at times when she is anxious) Severity: similar to previous episodes (reports hx of same in the past) Quality: tightness and aching Relieving factors: nothing Exacerbating factors: nothing Treatment prior to arrival: other (methocarbamol, flexeril, NSAIDs) Related Data Previous Rx's Medication Instructions Recorded diazepam [Valium] 5 mg PO TID PRN #10 tab 08/26/20 naproxen 500 mg PO BID PRN #10 tab 08/26/20 meclizine 25 mg PO TID PRN #14 tab 09/11/20 valacyclovir [Valtrex] 1,000 mg PO BID 7 Days #14 tab 09/11/20 acetaminophen-codeine 1 tab PO Q8H PRN #10 tab NS 09/17/20 fluconazole [Diflucan] 150 mg PO Q3D #2 tab NS 09/17/20 metronidazole [Flagyl] 500 mg PO BID 7 Days #14 tab NS 09/17/20 cyclobenzaprine 10 mg PO TID PRN #15 tab 11/14/20 lidocaine [Lidoderm] 1 patch TOPICAL DAILY #15 ea 01/19/21 methocarbamol 750 mg PO Q8H #15 tab 01/19/21 naproxen 375 mg PO BID PRN #20 tab 01/19/21 acetaminophen [Tylenol Extra 1,000 mg PO QID PRN #14 tab 02/12/21 Strength] cyclobenzaprine 10 mg PO Q8H #10 tab 02/12/21 ibuprofen 800 mg PO Q8H PRN #14 tab 02/12/21 oxycodone 5 mg PO BID PRN #10 tab 02/12/21 cyclobenzaprine 10 mg PO TID PRN #15 tab 04/28/21 lidocaine 1 patch TOPICAL DAILY PRN #10 ea 04/28/21 Allergies Allergy/AdvReac Type Severity Reaction Status Date / Time tramadol [TRAMADOL] Allergy Severe ITCHING Verified 01/19/21 13:46 Review of Systems Review of Systems: Constitutional : No Weight loss, No Fever, No Chills ENT/Mouth : No sore throat, No Rhinorrhea Eyes: No Eye Pain, No Swelling Cardiovascular : pos Chest Pain, no SOB, no Dyspnea on Exertion, No Orthopnea, No Edema, No Palpitations Respiratory : No Cough, No Sputum Gastrointestinal : no Nausea, No Vomiting, No Diarrhea, No abdominal Pain, No Hematochezia, No Melena Genitourinary : No Dysuria, No Urinary Frequency Musculoskeletal : No joint pain, pos Myalgias, No Joint Swelling, pos back pain Skin : No Skin Lesions, No rash Neuro : No Weakness, No Numbness, No Dizziness, No Headache Psych : No Anxiety/Panic, No Depression Heme/Lymph: No Bruising, No Lymphadenopathy Endocrine : No Polyuria, No Polydipsia All other systems reviewed and are negative [facility] Past Medical History Attestation statement: The following information was validated with the patient. Medical History COVID-19 Endometritis No known health problems Patient denies medical problems Social History Social History Alcohol intake: never Smoked in Last 30 Days: No Use of substances other than those prescribed or required for medical reasons: No Advance Directives: No Advance Directives Information Provided: No Physical Exam Vital Signs: Vital Signs: Last Vital Signs Temp 98.2 F 04/28/21 11:44 Pulse 79 04/28/21 11:44 Resp 15 04/28/21 11:44 BP 112/70 04/28/21 11:44 Pulse Ox 100 04/28/21 11:44 Body Mass Index 31.2 Appearance: Alert. Oriented X3. No acute distress. Eyes: Pupils equal, round and reactive to light. ENT: Pharynx normal. Neck: Normal inspection. Neck supple. CVS: Normal heart rate and rhythm. Pulses normal bounding and intact Respiratory: No respiratory distress. Breath sounds normal. Back: upper trapezius bilateral pain that is reproduceable with palpation Abdomen: Soft and nontender. Skin: Skin warm and dry. Normal skin color. Normal skin turgor. Extremities: No lower extremity edema. No calf ttp Neuro: Oriented X 3. No motor deficit. No sensory deficit. Course Course Course Narrative: patient now refusing CXR states she wants to leave and go home, alert and oriented MDM - Chest Pain MDM Narrative Medical decision making narrative: 40 yo female no sig PMH here with likely upper back spasm post heavy lifting 4 days ago - pain is reproduceable in nature I do not suspect ACS - EKG and troponin negative, CXR ordered, distal pulses intact doubt dissection, she has no hypoxia/tachycardia/not pleuritic in nature, likely MSK strain - toradol and lidocaine patches Lab Data Result diagrams: 04/28/21 12:29 04/28/21 12:29 Labs: Lab Results 04/28/21 04/28/21 04/28/21 Range/Units 12:29 12:29 12:29 WBC 10.8 (4.8-10.8) X10*3/uL RBC 4.84 (4.20-5.50) X10*6/uL Hgb 13.1 (12.0-16.0) g/dl Hct 40.9 (37-47) % MCV 84.5 (80-98) fL MCH 27.1 (27.0-33.0) pg MCHC 32.0 (31.0-35.0) g/dl RDW 15.5 (11.0-16.0) % Plt Count 258 (160-400) X10*3/uL MPV 10.3 (9.4-12.3) fL Immature Gran % (Auto) 0.3 (0.0-0.4) % Neut % (Auto) 71.1 (45-73) % Lymph % (Auto) 23.0 (20-40) % [place] % (Auto) 3.3 (2-11) % Eos % (Auto) 2.1 (0-4) % Baso % (Auto) 0.2 (0-2) % Lymph # (Auto) 2.5 (1.2-4.9) X10*3/uL [place] # (Auto) 0.4 (0.1-1.2) X10*3/uL Eos # (Auto) 0.2 (0.0-0.4) X10*3/uL Baso # (Auto) 0.0 (0.0-0.2) X10*3/uL Abs Immat Gran (auto) 0.03 (0.00-0.03) X10*3/uL Absolute Neuts (auto) 7.7 (2.0-8.3) X10*3/uL Absolute Nucleated RBC 0.000 (0.0-0.012) X10*3/uL Nucleated RBC % (auto) 0.0 (0.0-0.2) /100WBC Sodium 139 (135-145) mmol/L Potassium 4.0 (3.3-5.1) mmol/L Chloride 107 (96-108) mmol/L Carbon Dioxide 26 (22-29) mmol/L Anion Gap 10 L (12-20) BUN 10 (9-16) mg/dL Creatinine 0.75 (0.5-1.4) mg/dL Estim Creat Clear Calc 94.2 Estimated GFR > 60 Random Glucose 95 (60-115) mg/dL Calcium 9.4 D (8.4-10.2) mg/dL Troponin I High Sens < 3.5 (<3.5-17.0) ng/L ECG Data ECG #1: Attestation: I personally reviewed and interpreted this ECG as follows: ECG interpretation date: 04/28/21 ECG interpretation time: 14:10 Interpretation: Rate: 78 Rhythm: NSR [place]: normal Normal P waves. Normal [place]. Normal QRS complex. ST T wave : no CELINA, inverted V1, V3, II, poor R wave progression qTC: normal prior studies: no sig change Oct 2020 The study has been interpreted contemporaneously by me. . Discharge Plan Discharge Clinical Impression: Atypical chest pain, Trapezius muscle spasm Patient Disposition: Home, Self-Care Instructions: Muscle Spasm (ED) Additional Instructions: return to ED for any worsening symptoms or concerns you were offered chest xray but refused Prescriptions: New cyclobenzaprine 10 mg tablet 10 mg PO TID PRN (Reason: muscle spasm) Qty: 15 RF: 0 lidocaine 4 % adhesive patch,medicated 1 patch topical DAILY PRN (Reason: pain) Qty: 10 RF: 0 No Action meclizine 25 mg tablet 25 mg PO TID PRN (Reason: dizziness) Qty: 14 RF: 0 valacyclovir [Valtrex] 1 gram tablet 1,000 mg PO BID 7 Days Qty: 14 RF: 0 fluconazole [Diflucan] 150 mg tablet 150 mg PO Q3D Qty: 2 RF: 0 metronidazole [Flagyl] 500 mg tablet 500 mg PO BID 7 Days Qty: 14 RF: 0 acetaminophen-codeine 300-30 mg tablet 1 tab PO Q8H PRN (Reason: pain) Qty: 10 RF: 0 cyclobenzaprine 10 mg tablet 10 mg PO Q8H Qty: 10 RF: 0 ibuprofen 800 mg tablet 800 mg PO Q8H PRN (Reason: pain) Qty: 14 RF: 0 acetaminophen [Tylenol Extra Strength] 500 mg tablet 1,000 mg PO QID PRN (Reason: fever or pain) Qty: 14 RF: 0 oxycodone 5 mg tablet 5 mg PO BID PRN (Reason: pain) Qty: 10 RF: 0 naproxen 500 mg tablet 500 mg PO BID PRN (Reason: pain) Qty: 10 RF: 0 diazepam [Valium] 5 mg tablet 5 mg PO TID PRN (Reason: pain) Qty: 10 RF: 0 cyclobenzaprine 10 mg tablet 10 mg PO TID PRN (Reason: muscle spasm) Qty: 15 RF: 0 methocarbamol 750 mg tablet 750 mg PO Q8H Qty: 15 RF: 0 naproxen 375 mg tablet 375 mg PO BID PRN (Reason: pain) Qty: 20 RF: 0 lidocaine [Lidoderm] 5 % adhesive patch,medicated 1 patch topical DAILY Qty: 15 RF: 0 Referrals: Marco Juardo MD [Primary Care Provider] - 2 days (if not better) Stand Alone Forms: Work/School Release Print Language: Tristanian
[2021-04-28] MEDS: Lidocaine 4 % Patch ADH..PATCH 2 PATCH TRANSDERMA (14:41)
[2021-04-28] MEDS: Ketorolac Tromethamine 60 MG/2 ML VIAL IM (14:41)
--- NOTE | 2021-04-28 14:42 | PC.NURSE ---
pt refusing cxr requesting dc
== END 2021-04-28 14:50 | disposition home or self-care (01) ==
PROVIDERS: Emergency Provider Emergency Medicine; PCP Internal Medicine
DX: R07.89 Other chest pain (principal); M62.838 Other muscle spasm
CPT/HCPCS: 36415; 80048; 84484; 85025; 93005; 96372; 99284; J1885

== ENCOUNTER 2021-06-02 12:12 | Emergency (ER) | payer BC, SELFPAY ==
--- NOTE | ~2021-06-02 | XR_ITS ---
EXAMINATION: XR ANKLE, LEFT CLINICAL INFORMATION: Fall, trauma, pain COMPARISON: None TECHNIQUE: AP, lateral, and mortise views of the left ankle. FINDINGS: There is lateral soft tissue swelling. The malleoli are intact and the ankle mortise is symmetric. There is no fracture or dislocation. The retrocalcaneal recess is preserved. Base of the fifth metatarsal is intact. XR/XR ankle LT min 3V IMPRESSION: Lateral soft tissue swelling. No fracture or dislocation.
[2021-06-02 12:43] VITALS: BP 115/72; PULSE 79; RESP 18; TEMP 36.9; O2SAT 100; BMI 28.9
--- NOTE | 2021-06-02 13:05 | ED.LOWEXIN ---
HPI - Extremity Injury (Lower) General Chief Complaint: Extremity Injury, Lower Stated Complaint: Sprained Ankle Time Seen by Provider: 06/02/21 13:01 Source: patient Mode of arrival: wheelchair Limitations: language barrier History of Present Illness HPI Narrative: 40-year-old female with no significant past medical history presents the ED with reports of left ankle injury. Patient states he was walking down stairs when she slipped fell and twisted her left ankle. Since has been unable to walk and has severe pain. No medications taken prior to arrival. No reports of head injury or trauma no other complaints or concerns at this time. Related Data Previous Rx's Medication Instructions Recorded diazepam [Valium] 5 mg PO TID PRN #10 tab 08/26/20 naproxen 500 mg PO BID PRN #10 tab 08/26/20 meclizine 25 mg PO TID PRN #14 tab 09/11/20 valacyclovir [Valtrex] 1,000 mg PO BID 7 Days #14 tab 09/11/20 acetaminophen-codeine 1 tab PO Q8H PRN #10 tab NS 09/17/20 fluconazole [Diflucan] 150 mg PO Q3D #2 tab NS 09/17/20 metronidazole [Flagyl] 500 mg PO BID 7 Days #14 tab NS 09/17/20 cyclobenzaprine 10 mg PO TID PRN #15 tab 11/14/20 lidocaine [Lidoderm] 1 patch TOPICAL DAILY #15 ea 01/19/21 methocarbamol 750 mg PO Q8H #15 tab 01/19/21 naproxen 375 mg PO BID PRN #20 tab 01/19/21 acetaminophen [Tylenol Extra 1,000 mg PO QID PRN #14 tab 02/12/21 Strength] cyclobenzaprine 10 mg PO Q8H #10 tab 02/12/21 ibuprofen 800 mg PO Q8H PRN #14 tab 02/12/21 oxycodone 5 mg PO BID PRN #10 tab 02/12/21 cyclobenzaprine 10 mg PO TID PRN #15 tab 04/28/21 lidocaine 1 patch TOPICAL DAILY PRN #10 ea 04/28/21 Allergies Allergy/AdvReac Type Severity Reaction Status Date / Time tramadol [TRAMADOL] Allergy Severe ITCHING Verified 01/19/21 13:46 Review of Systems Review of Systems: Constitutional : No Weight loss, No Fever, No Chills, No Night Sweats, No Fatigue, No Malaise ENT/Mouth : No Hearing loss, No Ear Pain, No Nasal Congestion, No Sinus Pain, No Hoarseness, No sore throat, No Rhinorrhea, No Swallowing Difficulty Eyes: No Eye Pain, No Swelling, No Redness, No Foreign Body, No Discharge, No Vision Changes Cardiovascular : No Chest Pain, No SOB, No Dyspnea on Exertion, No Orthopnea, No Edema, No Palpitations Respiratory : No Cough, No Sputum, No Wheezing, No Smoke Exposure, No Dyspnea Gastrointestinal : No Nausea, No Vomiting, No Diarrhea, No Constipation, No abdominal Pain, No Hematochezia, No Melena Genitourinary : no irregular bleeding, No Dysuria, No Urinary Frequency, No Hematuria, No Urinary Incontinence, No Urgency, No Flank Pain, No Urinary Flow Changes, No Hesitancy Musculoskeletal : + joint pain, + Myalgias, + Joint Swelling Skin : No Skin Lesions, No rash Neuro : No Weakness, No Numbness, No Paresthesias, No Loss of Consciousness, No Dizziness, No Headache Psych : No Anxiety/Panic, No Depression, No SI/HI/AH/VH, No Social Issues, Heme/Lymph: No Bruising, No Bleeding,No Lymphadenopathy Endocrine : No Polyuria, No Polydipsia, No Temperature Intolerance PMFSH Past Medical History Attestation statement: The following information was validated with the patient. Source: old records reviewed and obtained from family Medical History COVID-19 Endometritis No known health problems Patient denies medical problems Social History Social History Alcohol intake: never Advance Directives: No Advance Directives Information Provided: No Patient : No Physical Exam Vital Signs: Vital Signs: Last Vital Signs Temp 98.4 F 06/02/21 12:43 Pulse 79 06/02/21 12:43 Resp 18 06/02/21 12:43 BP 115/72 06/02/21 12:43 Pulse Ox 100 06/02/21 12:43 Body Mass Index 28.9 vital signs have been reviewed as normal and appeared to be correct. Blood pressure normal. Heart rate normal. Respiration rate normal. Temperature normal. Oxygen saturation normal. Appearance: Alert. Oriented X3. Mild acute distress. Head: Normal external exam. Normocephalic. Atraumatic. No [place] signs noted. No raccoon eyes noted Eyes: Conjunctiva and sclera normal. ENT: EAC normal. Moist mucous membranes. No drooling noted. No muffled voice noted. Neck: Normal inspection. Neck supple. FROM. No meningeal signs. CVS: Pulses normal throughout. Respiratory: No respiratory distress. Painless inspiration. No accessory muscle usage noted Abdomen: No visible injury noted. Back: Full range of motion noted. Skin: Skin warm and dry. Normal skin color. Normal skin turgor. Extremities: Limited range of motion of left ankle secondary to pain. Obvious edema to left lateral malleolus. Good distal pulse. Good capillary refill. Patient able to wiggle left metatarsals. No posterior calf tenderness no anterior tibial/ fibular tenderness. Achilles tendon intact. Limb itself is neurovascularly intact. Neuro: Oriented X 3. No motor deficit. No sensory deficit. Course Reevaluation(s) Reevaluation #1: Patient's x-ray without evidence acute fracture dislocation, will d/c home with crutches and aircast with close outpatient FU and strict return precautions MDM - Extremity Injury (Lower) MDM Narrative Medical decision making narrative: Patient's vital signs are stable and she is afebrile. Patient presenting to the ED with left ankle injury. Patient states 30 minutes prior to arrival she slipped and twisted her left ankle. Will obtain x-ray looking for evidence of fracture dislocation will medicate with Motrin Tylenol will continue to monitor reassess pending the above patient without other signs of acute injury or trauma resting comfortably in a wheelchair at this time. Discharge Plan Discharge Clinical Impression: Ankle sprain and strain Patient Disposition: Home, Self-Care Instructions: Ankle Sprain (ED) Additional Instructions: your see the emergency department today for left ankle injury and x-ray was taken without evidence of acute fracture this likely a sprain and should improve over time on its own with supportive care. Continue to use Motrin and Tylenol as needed for pain use crutches and Aircast for support please avoid bearing weight on the leg for the next 3-5 days to help with healing Prescriptions: No Action meclizine 25 mg tablet 25 mg PO TID PRN (Reason: dizziness) Qty: 14 RF: 0 valacyclovir [Valtrex] 1 gram tablet 1,000 mg PO BID 7 Days Qty: 14 RF: 0 fluconazole [Diflucan] 150 mg tablet 150 mg PO Q3D Qty: 2 RF: 0 metronidazole [Flagyl] 500 mg tablet 500 mg PO BID 7 Days Qty: 14 RF: 0 acetaminophen-codeine 300-30 mg tablet 1 tab PO Q8H PRN (Reason: pain) Qty: 10 RF: 0 cyclobenzaprine 10 mg tablet 10 mg PO Q8H Qty: 10 RF: 0 ibuprofen 800 mg tablet 800 mg PO Q8H PRN (Reason: pain) Qty: 14 RF: 0 acetaminophen [Tylenol Extra Strength] 500 mg tablet 1,000 mg PO QID PRN (Reason: fever or pain) Qty: 14 RF: 0 oxycodone 5 mg tablet 5 mg PO BID PRN (Reason: pain) Qty: 10 RF: 0 naproxen 500 mg tablet 500 mg PO BID PRN (Reason: pain) Qty: 10 RF: 0 diazepam [Valium] 5 mg tablet 5 mg PO TID PRN (Reason: pain) Qty: 10 RF: 0 cyclobenzaprine 10 mg tablet 10 mg PO TID PRN (Reason: muscle spasm) Qty: 15 RF: 0 methocarbamol 750 mg tablet 750 mg PO Q8H Qty: 15 RF: 0 naproxen 375 mg tablet 375 mg PO BID PRN (Reason: pain) Qty: 20 RF: 0 lidocaine [Lidoderm] 5 % adhesive patch,medicated 1 patch topical DAILY Qty: 15 RF: 0 cyclobenzaprine 10 mg tablet 10 mg PO TID PRN (Reason: muscle spasm) Qty: 15 RF: 0 lidocaine 4 % adhesive patch,medicated 1 patch topical DAILY PRN (Reason: pain) Qty: 10 RF: 0 Interventions: ED Discharge Assessment Last Done: 06/02/21 14:10 Discharge Date/Time: 06/02/21 14:12 Print Language: Guamanian
[2021-06-02] MEDS: Ibuprofen 600 MG TABLET PO (13:26)
[2021-06-02] MEDS: Acetaminophen 325 MG TABLET 650 MG PO (13:27)
== END 2021-06-02 14:12 | disposition home or self-care (01) ==
PROVIDERS: Emergency Provider Student in an Organized Health Care Education/Training Program; PCP Internal Medicine
DX: S93.402A Sprain of unspecified ligament of left ankle, initial encounter (principal); S96.912A Strain of unspecified muscle and tendon at ankle and foot level, left foot, initial encounter; W10.9XXA Fall (on) (from) unspecified stairs and steps, initial encounter; Y93.9 Activity, unspecified; Y92.9 Unspecified place or not applicable; Y99.9 Unspecified external cause status
CPT/HCPCS: 73610; 99283

== ENCOUNTER 2021-11-28 09:14 | Emergency (ER) | payer BC, SELFPAY ==
--- NOTE | ~2021-11-28 | US_ITS ---
EXAMINATION: US OBSTETRICAL ULTRASOUND CLINICAL INFORMATION: Status post medication to induce . Nausea, vomiting. Evaluate for RPOC COMPARISON: None. LMP: Unknown. Gestational age by maternal dates is unknown. Estimated date of delivery by maternal dates is unknown. TECHNIQUE: Routine transabdominal ultrasound of pelvis is performed. FINDINGS: There is a single live intrauterine gestational sac with visible yolk sac, embryo/fetus, and cardiac activity. There is minimal debris visualized within the gestational sac. There is no significant subchorionic hemorrhage or hematoma. HR: 165 beats per minute. CRL (crown rump length): 2.08 cm (8 weeks and 5 days +/- 4 days). JUNE (estimated date of delivery): 07/05/2022 +/- 4 days. MATERNAL ADNEXA: The right maternal ovary measures 3.5 x 2.6 x 2.1 cm. There is a corpus luteal cyst measuring 1.9 x 1.3 x 1.6 cm The left maternal ovary measures 2.8 x 2.1 x 1.3 cm. There is no significant maternal adnexal mass. No maternal pelvic ascites. US/US OB pelvic and transvaginal IMPRESSION: Single live intrauterine fetus with ultrasound gestational age of 8 weeks 5 days and heart rate of 165 bpm. Small corpus luteal cyst right ovary. The left ovary is unremarkable. There is no free fluid in the cul-de-sac.
[2021-11-28 11:24] VITALS: BP 113/60; PULSE 74; RESP 18; TEMP 36.8; O2SAT 99; BMI 27.4
--- NOTE | 2021-11-28 12:51 | ED.NAVMDI ---
HPI - Nausea/Vomiting/Diarrhea General Chief complaint: Nausea/Vomiting/Diarrhea Stated complaint: Vomiting Time Seen by Provider: 11/28/21 12:50 Source: patient Mode of arrival: ambulatory Limitations: no limitations History of Present Illness HPI Narrative: 41-year-old female presents to the emergency department with nausea and vomiting x2 days, and epigastric discomfort patient tells me that [facility] where she states she received two medications misoprostol, and mifeprisone. She tells me she was around 7 weeks she thinks. She says ever since she took these medications she has been extremely nauseas, and has vomited all day long. She tells me she is unable to keep any food down because of the nausea and vomiting. She was given Compazine, she tells me this has not been helping her. She tells me she feels very tired. She denies vaginal bleeding, chest pain, shortness of breath,headache, dizziness, double vision. MD elicited complaint: nausea and vomiting Pertinent past history: anorexia Onset (ago): week(s) (1) Description of vomiting: food contents and watery Associated nausea: Yes Associated abdominal pain: Yes (epigastric) Location of pain: epigastric Pain consistency: constant Severity: moderate Quality: cramping and other (burning) Exacerbating factors: eating Relieving factors: none Context: other (Recent medication induced ) Associated symptoms: nausea/vomiting Treatment prior to arrival: other (copazine) Related Data Previous Rx's Medication Instructions Recorded diazepam 5 mg tablet (Valium) 5 mg PO TID PRN #10 tab 08/26/20 naproxen 500 mg tablet 500 mg PO BID PRN #10 tab 08/26/20 meclizine 25 mg tablet 25 mg PO TID PRN #14 tab 09/11/20 valacyclovir 1 gram tablet 1,000 mg PO BID 7 Days #14 tab 09/11/20 (Valtrex) Diflucan 150 mg tablet 150 mg PO Q3D #2 tab NS 09/17/20 (fluconazole) Flagyl 500 mg tablet 500 mg PO BID 7 Days #14 tab NS 09/17/20 (metronidazole) acetaminophen 300 mg-codeine 30 mg 1 tab PO Q8H PRN #10 tab NS 09/17/20 tablet cyclobenzaprine 10 mg tablet 10 mg PO TID PRN #15 tab 11/14/20 lidocaine 5 % topical patch 1 patch TOPICAL DAILY #15 ea 01/19/21 (Lidoderm) methocarbamol 750 mg tablet 750 mg PO Q8H #15 tab 01/19/21 naproxen 375 mg tablet 375 mg PO BID PRN #20 tab 01/19/21 acetaminophen 500 mg tablet 1,000 mg PO QID PRN #14 tab 02/12/21 (Tylenol Extra Strength) cyclobenzaprine 10 mg tablet 10 mg PO Q8H #10 tab 02/12/21 ibuprofen 800 mg tablet 800 mg PO Q8H PRN #14 tab 02/12/21 oxycodone 5 mg tablet 5 mg PO BID PRN #10 tab 02/12/21 cyclobenzaprine 10 mg tablet 10 mg PO TID PRN #15 tab 04/28/21 lidocaine 4 % topical patch 1 patch TOPICAL DAILY PRN #10 ea 04/28/21 ondansetron 4 mg disintegrating 4 mg PO ONCE PRN #10 tab 11/28/21 tablet Allergies Allergy/AdvReac Type Severity Reaction Status Date / Time tramadol [TRAMADOL] Allergy Severe ITCHING Verified 01/19/21 13:46 Review of Systems Review of Systems: Constitutional : No Weight loss, No Fever, No Chills, No Fatigue, No Malaise ENT/Mouth : No sore throat, No Rhinorrhea Eyes: No Eye Pain, No Swelling, No Redness Cardiovascular : No Chest Pain, No SOB, No Dyspnea on Exertion, No Orthopnea, No Edema, No Palpitations Respiratory : No Cough, No Sputum, No Wheezing Gastrointestinal : + Nausea, + Vomiting, No Diarrhea, No Constipation, + abdominal Pain, No Hematochezia, No Melena Genitourinary : No Dysuria, No Urinary Frequency, No Hematuria, Musculoskeletal : No joint pain, No Myalgias, No Joint Swelling Skin : No Skin Lesions, No rash Neuro : No Weakness, No Numbness, No Dizziness, No Headache All other systems reviewed and are negative Yes all other systems are reviewed and are negative Gastrointestinal: Gastrointestinal: Reports nausea PMFSH Past Medical History Attestation statement: The following information was validated with the patient. Source: old records reviewed and nursing notes reviewed Medical History COVID-19 Endometritis No known health problems Patient denies medical problems Social History Social History Alcohol intake: never Advance Directives: No Advance Directives Information Provided: No Patient : No Physical Exam Vital Signs: Vital Signs: Last Vital Signs Temp 99.4 F 11/28/21 14:19 Pulse 64 11/28/21 14:19 Resp 16 11/28/21 14:19 BP 100/55 L 11/28/21 14:19 Pulse Ox 98 11/28/21 14:19 BMI result Body Mass Index 27.4 VSS Appearance: Alert.? Oriented X3.? No acute distress.? Head: Normocephalic, atraumatic, no step-offs or deformities Eyes: Pupils equal, round and reactive to light.? ENT: Pharynx normal.? Neck: Normal inspection.? Neck supple.? CVS: Normal heart rate and rhythm.? Pulses normal.? Respiratory: No respiratory distress.? Breath sounds normal.? Abdomen: Soft and nontender.? Skin: Skin warm and dry.? Normal skin color.? Normal skin turgor.? Extremities: No lower extremity edema.? No calf ttp. 5/5 strength to bilateral upper and lower extremities Back: No midline tenderness, no C-spine tenderness, full range of motion, no CVA tenderness bilaterally Neuro: Oriented X 3.? No motor deficit.? No sensory deficit. Course Reevaluation(s) Reevaluation #1: I did a pelvic exam which showed a slightly open cervical os, with brown/rust colored discharge discharge from the OS. No visible POC in the os. Patient continues to tell me she passed huge clots which she thought was the fetus. Patient is no hx of other abortions or miscarriages tells me as long as there is no significant hemorrhaging patient can [facility]. He recommends doing a type and cross to find at patient's blood type/determine whether not the patient requires RhoGAM. Time: 16:00 Reevaluation #2: NG/CT pending. No need for rhogam at this time. At this time patient is hemodynamically stable, pain is well controlled. Nausea and vomiting have subsided. I feel comfortable with [facility]. I have advised her to return to the emergency department with new or worsening symptoms, I have outlined strict return precautions on her discharge. Comfortable with discharge Time: 18:05 MDM - Nausea/Vomiting/Diarrhea MDM Narrative Medical decision making narrative: 1334 41 yo female who recently [facility] to the ED w/ complaints of nausea and vomiting. Has tried compazine with no relief Physical examination benign. Plan at this time is to obtain basic labs, electrolytes, urine, fluids and Zofran. Medical Records Attestation: I reviewed the patient's medical records. Lab Data Attestation: I reviewed the patient's lab results. Result diagrams: 11/28/21 13:19 11/28/21 13:19 Labs: Lab Results 11/28/21 11/28/21 11/28/21 Range/Units 13:19 13:19 13:19 WBC 13.5 H (4.8-10.8) X10*3/uL RBC 4.73 (4.20-5.50) X10*6/uL Hgb 13.0 (12.0-16.0) g/dl Hct 39.3 (37.0-47.0) % MCV 83.1 (80.0-98.0) fL MCH 27.5 (27.0-33.0) pg MCHC 33.1 (31.0-35.0) g/dl RDW 14.8 (11.0-16.0) % Plt Count 287 (160-400) X10*3/uL MPV 9.9 (9.4-12.3) fL Immature Gran % (Auto) 0.3 (0.0-0.4) % Neut % (Auto) 75.1 H (45-73) % Lymph % (Auto) 18.4 L (20-40) % [place] % (Auto) 4.7 (2-11) % Eos % (Auto) 1.3 (0-4) % Baso % (Auto) 0.2 (0-2) % Lymph # (Auto) 2.5 (1.2-4.9) X10*3/uL [place] # (Auto) 0.6 (0.1-1.2) X10*3/uL Eos # (Auto) 0.2 (0.0-0.4) X10*3/uL Baso # (Auto) 0.0 (0.0-0.2) X10*3/uL Abs Immat Gran (auto) 0.04 H (0.00-0.03) X10*3/uL Absolute Neuts (auto) 10.1 H (2.0-8.3) x10*3/uL Absolute Nucleated RBC 0.000 (0.0-0.012) X10*3/uL Nucleated RBC % (auto) 0.0 (0.0-0.2) /100WBC Sodium 135 (135-145) mmol/L Potassium 3.9 (3.3-5.1) mmol/L Chloride 104 (96-108) mmol/L Carbon Dioxide 24 (22-29) mmol/L Anion Gap 11 L (12-20) BUN 6 L (9-16) mg/dL Creatinine 0.73 (0.5-1.4) mg/dL Estim Creat Clear Calc 93.5 Estimated GFR > 60 Random Glucose 104 (60-115) mg/dL Calcium 9.4 (8.4-10.2) mg/dL Magnesium 2.2 (1.6-2.6) mg/dL Total Bilirubin 0.4 (0.0-1.0) mg/dL AST 26 D (5-31) U/L ALT 54 H (0-31) U/L Alkaline Phosphatase 64 D (39-117) U/L Total Protein 7.1 (6.5-8.0) g/dL Albumin 4.1 (3.5-5.0) g/dL Beta HCG, Quant 643260 mIU/mL Urine Test (NEGATIVE) Urine Opiates Screen (Not Detect) Urine Fentanyl Screen (Not Detect) Ur Barbiturates Screen (Not Detect) Ur Phencyclidine Scrn (Not Detect) Ur Amphetamines Screen (Not Detect) U Benzodiazepines Scrn (Not Detect) Urine Cocaine Screen (Not Detect) U Marijuana (THC) Screen (Not Detect) COVID-19 (JARON) Negative (Negative) COVID-19 Clin Com See Note Blood Type Antibody Screen Antibody Titer 11/28/21 11/28/21 11/28/21 Range/Units 13:53 13:54 16:55 WBC (4.8-10.8) X10*3/uL RBC (4.20-5.50) X10*6/uL Hgb (12.0-16.0) g/dl Hct (37.0-47.0) % MCV (80.0-98.0) fL MCH (27.0-33.0) pg MCHC (31.0-35.0) g/dl RDW (11.0-16.0) % Plt Count (160-400) X10*3/uL MPV (9.4-12.3) fL Immature Gran % (Auto) (0.0-0.4) % Neut % (Auto) (45-73) % Lymph % (Auto) (20-40) % [place] % (Auto) (2-11) % Eos % (Auto) (0-4) % Baso % (Auto) (0-2) % Lymph # (Auto) (1.2-4.9) X10*3/uL [place] # (Auto) (0.1-1.2) X10*3/uL Eos # (Auto) (0.0-0.4) X10*3/uL Baso # (Auto) (0.0-0.2) X10*3/uL Abs Immat Gran (auto) (0.00-0.03) X10*3/uL Absolute Neuts (auto) (2.0-8.3) x10*3/uL Absolute Nucleated RBC (0.0-0.012) X10*3/uL Nucleated RBC % (auto) (0.0-0.2) /100WBC Sodium (135-145) mmol/L Potassium (3.3-5.1) mmol/L Chloride (96-108) mmol/L Carbon Dioxide (22-29) mmol/L Anion Gap (12-20) BUN (9-16) mg/dL Creatinine (0.5-1.4) mg/dL Estim Creat Clear Calc Estimated GFR Random Glucose (60-115) mg/dL Calcium (8.4-10.2) mg/dL Magnesium (1.6-2.6) mg/dL Total Bilirubin (0.0-1.0) mg/dL AST (5-31) U/L ALT (0-31) U/L Alkaline Phosphatase (39-117) U/L Total Protein (6.5-8.0) g/dL Albumin (3.5-5.0) g/dL Beta HCG, Quant mIU/mL Urine Test POSITIVE H (NEGATIVE) Urine Opiates Screen Not Detected (Not Detect) Urine Fentanyl Screen Not Detected (Not Detect) Ur Barbiturates Screen Not Detected (Not Detect) Ur Phencyclidine Scrn Not Detected (Not Detect) Ur Amphetamines Screen Not Detected (Not Detect) U Benzodiazepines Scrn Not Detected (Not Detect) Urine Cocaine Screen Not Detected (Not Detect) U Marijuana (THC) Screen POSITIVE H (Not Detect) COVID-19 (JARON) (Negative) COVID-19 Clin Com Blood Type O Positive Antibody Screen NEGATIVE Antibody Titer TNP Critical Care Time Critical Care Time Critical Care Time: Yes Total Critical Care Time: 45 Attestation: I attest to this time spent taking care of the patient obtaining history & physical, reviewing labs & imaging, consulting OBGYN, [facility] Discharge Clinical Impression: Failed attempted medical , Nausea and vomiting Patient Disposition: Home, Self-Care Instructions: Acute Nausea and Vomiting (ED), Acute Abdominal Pain (ED) Additional Instructions: Take your medications as prescribed. [facility], preferably [facility]. Follow-up with your primary care provider this week. If you began having heavy vaginal bleeding and you are bleeding through more than 1-2 pads per hour you must return to the emergency department to be evaluated. Return to the emergency department with new or worsening symptoms. Please return to the emergency department if you are experiencing chest pain, shortness of breath, severe abdominal pain, nausea, vomiting, fevers or chills or if he starts experiencing heavy vaginal bleeding or cramping. In case of emergency call 911 You mentioned you do not have an OBGYN, attached is our OB GYNs information. They do not do medication induced abortions. [place] lashanda medicamentos seg?n lo prescrito. Sonia un seguimiento con la paternidad planificada lo antes posible, preferiblemente ma?amarjit. Seguimiento con bañuelos proveedor de atenci?n primaria esta semana. Si comenz? a tener sangrado vaginal intenso y est? sangrando con m?s de 1 o 2 toallas higi?nicas por hora, debe regresar al departamento de emergencias para que la eval?en. Regrese al departamento de emergencias con s?ntomas nuevos o que empeoran. Regrese al departamento de emergencias si experimenta dolor en el pecho, dificultad para respirar, dolor abdominal intenso, n?useas, v?mitos, fiebre o escalofr?os o si comienza a experimentar sangrado vaginal abundante o calambres. En nadiya de emergencia llama al 911 Mencion? que no tiene un obstetra y ginec?logo, se adjunta la informaci?n de nuestro obstetra y ginec?logo. No hacen abortos inducidos por medicamentos. Prescriptions: New ondansetron 4 mg tablet,disintegrating 4 mg PO ONCE PRN (Reason: nausea and vomiting) Qty: 10 RF: 0 No Action meclizine 25 mg tablet 25 mg PO TID PRN (Reason: dizziness) Qty: 14 RF: 0 valacyclovir [Valtrex] 1 gram tablet 1,000 mg PO BID 7 Days Qty: 14 RF: 0 fluconazole [Diflucan] 150 mg tablet 150 mg PO Q3D Qty: 2 RF: 0 metronidazole [Flagyl] 500 mg tablet 500 mg PO BID 7 Days Qty: 14 RF: 0 acetaminophen-codeine 300-30 mg tablet 1 tab PO Q8H PRN (Reason: pain) Qty: 10 RF: 0 cyclobenzaprine 10 mg tablet 10 mg PO Q8H Qty: 10 RF: 0 ibuprofen 800 mg tablet 800 mg PO Q8H PRN (Reason: pain) Qty: 14 RF: 0 acetaminophen [Tylenol Extra Strength] 500 mg tablet 1,000 mg PO QID PRN (Reason: fever or pain) Qty: 14 RF: 0 oxycodone 5 mg tablet 5 mg PO BID PRN (Reason: pain) Qty: 10 RF: 0 naproxen 500 mg tablet 500 mg PO BID PRN (Reason: pain) Qty: 10 RF: 0 diazepam [Valium] 5 mg tablet 5 mg PO TID PRN (Reason: pain) Qty: 10 RF: 0 cyclobenzaprine 10 mg tablet 10 mg PO TID PRN (Reason: muscle spasm) Qty: 15 RF: 0 methocarbamol 750 mg tablet 750 mg PO Q8H Qty: 15 RF: 0 naproxen 375 mg tablet 375 mg PO BID PRN (Reason: pain) Qty: 20 RF: 0 lidocaine [Lidoderm] 5 % adhesive patch,medicated 1 patch topical DAILY Qty: 15 RF: 0 cyclobenzaprine 10 mg tablet 10 mg PO TID PRN (Reason: muscle spasm) Qty: 15 RF: 0 lidocaine 4 % adhesive patch,medicated 1 patch topical DAILY PRN (Reason: pain) Qty: 10 RF: 0 Referrals: Marco Jurado MD [Primary Care Provider] - 2 days Kvng Harris MD [Physician] - 3 days Stand Alone Forms: Work/School Release
[2021-11-28 13:22] LABS: MANUAL DIFF FLAG NO
[2021-11-28 13:25] LABS: Basophils Percent Auto 0.2 % (0-2); Eosinophils Absolute Auto 0.2 X10*3/uL (0.0-0.4); Eosinophils Percent Auto 1.3 % (0-4); Hematocrit 39.3 % (37.0-47.0); Imm Gran Abs Auto 0.04 X10*3/uL (0.00-0.03); Imm Gran Pct Auto 0.3 % (0.0-0.4); Lymphocytes Absolute Auto 2.5 X10*3/uL (1.2-4.9); Lymphocytes Percent Auto 18.4 % (20-40); Mean Corpuscular HGB Conc 33.1 g/dl (31.0-35.0); Mean Corpuscular Hemoglobin 27.5 pg (27.0-33.0); Mean Corpuscular Volume 83.1 fL (80.0-98.0); Mean Platelet Volume 9.9 fL (9.4-12.3); Monocytes Absolute Auto 0.6 X10*3/uL (0.1-1.2); Monocytes Percent Auto 4.7 % (2-11); Neutrophils Absolute Auto 10.1 x10*3/uL (2.0-8.3); Neutrophils Percent Auto 75.1 % (45-73); Platelet Count 287 X10*3/uL (160-400); Red Blood Count 4.73 X10*6/uL (4.20-5.50); Red Cell Distribution Width 14.8 % (11.0-16.0); White Blood Count 13.5 X10*3/uL (4.8-10.8)
[2021-11-28] MEDS: 0.9 % Sodium Chloride 1,000 ML 999 ML IV (13:34)
[2021-11-28] MEDS: ondansetron HCL 4 MG/2 ML VIAL IVPUSH (13:35)
[2021-11-28 13:40] LABS: COVID-19 Test Negative (Negative)
[2021-11-28 13:42] LABS: Alanine Aminotransferase 54 U/L (0-31); Albumin Level 4.1 g/dL (3.5-5.0); Alkaline Phosphatase 64 U/L (39-117); Anion Gap 11 (12-20); Aspartate Amino Transferase 26 U/L (5-31); Bilirubin Total 0.4 mg/dL (0.0-1.0); Blood Urea Nitrogen 6 mg/dL (9-16); Calcium 9.4 mg/dL (8.4-10.2); Carbon Dioxide 24 mmol/L (22-29); Chloride 104 mmol/L (96-108); Creatinine Clr Calc Pharmacy 93.5; Estimated Glomerular Filt Rate > 60; Glucose Random 104 mg/dL (60-115); Magnesium 2.2 mg/dL (1.6-2.6); Potassium 3.9 mmol/L (3.3-5.1); Sodium 135 mmol/L (135-145); Total Protein 7.1 g/dL (6.5-8.0)
[2021-11-28 14:04] LABS: UPreg QC Valid YES; Urine Pregnancy POSITIVE (NEGATIVE)
[2021-11-28 14:19] VITALS: BP 100/55; PULSE 64; RESP 16; TEMP 37.4; O2SAT 98
[2021-11-28 14:20] LABS: Barbiturates, Urine Not Detected (Not Detect); Benzodiazepines Screen Urine Not Detected (Not Detect); Cannabinoid Screen Urine POSITIVE (Not Detect); Cocaine Screen Urine Not Detected (Not Detect); Fentanyl, urine Not Detected (Not Detect); Opiate Screen Urine Not Detected (Not Detect); Phencyclidine Screen Urine Not Detected (Not Detect)
[2021-11-28 14:21] LABS: Amphetamine Screen Urine Not Detected (Not Detect)
[2021-11-28] MEDS: Magnesium Hydrox/Alum Hydrox 30 ML ORAL.SUSP PO (15:33)
[2021-11-28] MEDS: Famotidine 20 MG TABLET PO (15:33)
[2021-11-28] MEDS: Lidocaine HCl Viscous 2 % 15 ML SOLUTION 10 ML MUCOUS MEM (15:35)
--- NOTE | 2021-11-28 16:06 | PM.GYNCN ---
INSURANCE COMPLIANCE ANALYST - CN: HPI Data of Consult Consult date: 11/28/21 Primary Care Provider: Marco Jurado MD Consult Narrative Narrative: I was consulted by EULALIA Rowan in ER on Cynthia Munguia who is a 41 year old female 41-year-old female presents to the emergency department with nausea and vomiting x2 days, and epigastric discomfort patient tells me that she recently took misoprostol and [facility]ifeprisone [facility], the patient states that since she took these medications she has been extremely nauseas, and has vomited all day long. She was given Compazine, but did not resolve her nausea and vomiting according the patient.? Patient states that she passed large blood clots vaginally which she thought was the fetus. She denies vaginal bleeding, or pelvic cramping or any other complaints. Ultrasound done showed the following: Single live intrauterine fetus with ultrasound gestational age of 8 weeks 5 days and heart rate of 165 bpm. ?Small corpus luteal cyst right ovary. ?The left ovary is unremarkable. ?There is no free fluid in the cul-de-sac. cc:: CC: ANTHROPOLOGY PROFESSOR - Review of Systems Review of Systems ROS Unobtainable: All systems reviewed & are unremarkable except as noted in HPI and below Cardiovascular: Denies Palpatations, Loss of consciousness or Chest pain Respiratory: Denies Cough, Wheezing or Shortness of breath Musculoskeletal: Denies Low back pain Gastrointestinal: Denies Heartburn, Constipation, Diarrhea, Nausea or Vomiting Genitourinary: Denies Pain with urination, Burning with urination or Urinary frequency Neurological: Denies Migranes Psychological: Denies Depression [facility] Past Medical History Medical History COVID-19 Endometritis No known health problems Patient denies medical problems Social History Social History Alcohol intake: never Advance Directives: No Advance Directives Information Provided: No Patient : No Meds Allergies Allergy/AdvReac Type Severity Reaction Status Date / Time tramadol [TRAMADOL] Allergy Severe ITCHING Verified 01/19/21 13:46 INSURANCE COMPLIANCE ANALYST Physical Exam Vitals Vital signs: Temp Pulse Resp BP Pulse Ox 99.4 F 64 16 100/55 L 98 11/28/21 14:19 11/28/21 14:19 11/28/21 14:19 11/28/21 14:19 11/28/21 14:19 BMI result Body Mass Index 27.4 Constitutional General Appearance: Healthy appearing, Well-nourished and Well-developed Psychiatric Mood and Affect: active and alert, normal mood and normal affect Skin Appearance: No rashes and No lesions Lungs Respiratory Effort: No intercostal retractions Auscultation: Clear to auscultation Cardiovascular Auscultation: RRR Abdomen Auscultation/Inspection/Palpation: Normal bowel sounds, Soft, Non-distended and No tenderness Additional Comments: Pelvic exam done by JON Campbell was reported to showed the following: a slightly open cervical os, with brown/rust colored discharge discharge from the OS. No visible POC in the os. INSURANCE COMPLIANCE ANALYST - Results Labs CBC & Chem 7: 11/28/21 13:19 11/28/21 13:19 Labs: Short CBC 11/28/21 Range/Units 13:19 WBC 13.5 H (4.8-10.8) X10*3/uL Hgb 13.0 (12.0-16.0) g/dl Hct 39.3 (37.0-47.0) % Plt Count 287 (160-400) X10*3/uL BMP 11/28/21 13:19 Sodium 135 Potassium 3.9 Chloride 104 Carbon Dioxide 24 BUN 6 L Creatinine 0.73 Calcium 9.4 Liver Function 11/28/21 Range/Units 13:19 Total Bilirubin 0.4 (0.0-1.0) mg/dL AST 26 D (5-31) U/L ALT 54 H (0-31) U/L Alkaline Phosphatase 64 D (39-117) U/L Albumin 4.1 (3.5-5.0) g/dL Urine 11/28/21 Range/Units 13:53 Urine Test POSITIVE H (NEGATIVE) Assessment and Plan (1) Failed attempted medical : Status: Acute Since the ultrasound showed an intrauterine at 8 weeks and 5 days of gestation without any abnormalities , and pelvic exam is unremarkable without evidence of any vaginal bleeding, I recommended to EULALIA Rowan the following: Check Rh status if negative, check antibody screen if negative, RhoGAM 300 mcg IM , mini RhoGAM (50mcg) is not available GC and chlamydia The patient to be counseled about the findings on ultrasound, failed medical , if the patient still desires termination of , [facility] regarding . SAB warnings to be given to patient. Instructions to be given to the patient come back to the emergency room in case of cramping/bleeding (2) Nausea and vomiting: Status: Acute I defer the management of the nausea and vomiting to the ER providers
[2021-11-28 18:03] VITALS: BP 110/55; PULSE 68; RESP 17; O2SAT 98
[2021-11-29 01:13] LABS: CT PCR NOT DETECTED (Not Detect.); NG PCR NOT DETECTED (Not Detect.)
== END 2021-11-28 18:35 | disposition home or self-care (01) ==
PROVIDERS: Physician Assistant; Emergency Provider Internal Medicine; PCP Internal Medicine
DX: O07.4 Failed attempted termination of pregnancy without complication (principal); R11.2 Nausea with vomiting, unspecified; Z20.822 Contact with and (suspected) exposure to COVID-19; F12.90 Cannabis use, unspecified, uncomplicated
CPT/HCPCS: 76801; 76817; 80053; 80307; 81025; 83735; 84702; 85025; 86850; 86900; 86901; 87491; 87591; 87635; 96361; 96374; 99283; 99291; J2405

== ENCOUNTER 2022-03-18 07:29 | Emergency (ER) | payer BC, SELFPAY ==
[2022-03-18 07:39] VITALS: BP 122/81; PULSE 86; RESP 18; TEMP 36.8; O2SAT 99; BMI 27.2
--- NOTE | 2022-03-18 08:06 | ED.GENADULT ---
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 Patient states that for the last couple days the back of her neck and shoulders has hurt and it hurts when she swallows. Patient states that her throat doesn't bother her when she isn't trying to swallow. Patient denies any dizziness, lightheadedness, abdominal pain, nausea, vomiting, fever, chills, blurry vision, double vision, loss of vision, chest pain, difficulty breathing, shortness of breath, back pain, night sweats, pain with urination, increased urinary frequency, increased urinary urgency, blood in her urine or stool, syncope or a near syncopal episode, recent trauma or falls, bowel incontinence, bladder incontinence, bowel retention, bladder retention, or any other complaints at this time. Onset (ago): day(s) Location: neck Radiation: non-radiation Severity: mild Severity scale (1-10): 3 Quality: dull Relieving factors: none Exacerbating factors: none Associated symptoms: denies other symptoms Treatments prior to arrival: none Related Data Previous Rx's Medication Instructions Recorded diazepam 5 mg tablet (Valium) 5 mg PO TID PRN #10 tab 08/26/20 naproxen 500 mg tablet 500 mg PO BID PRN #10 tab 08/26/20 meclizine 25 mg tablet 25 mg PO TID PRN #14 tab 09/11/20 valacyclovir 1 gram tablet 1,000 mg PO BID 7 Days #14 tab 09/11/20 (Valtrex) Diflucan 150 mg tablet 150 mg PO Q3D #2 tab NS 09/17/20 (fluconazole) Flagyl 500 mg tablet 500 mg PO BID 7 Days #14 tab NS 09/17/20 (metronidazole) acetaminophen 300 mg-codeine 30 mg 1 tab PO Q8H PRN #10 tab NS 09/17/20 tablet cyclobenzaprine 10 mg tablet 10 mg PO TID PRN #15 tab 11/14/20 lidocaine 5 % topical patch 1 patch TOPICAL DAILY #15 ea 01/19/21 (Lidoderm) methocarbamol 750 mg tablet 750 mg PO Q8H #15 tab 01/19/21 naproxen 375 mg tablet 375 mg PO BID PRN #20 tab 01/19/21 acetaminophen 500 mg tablet 1,000 mg PO QID PRN #14 tab 02/12/21 (Tylenol Extra Strength) cyclobenzaprine 10 mg tablet 10 mg PO Q8H #10 tab 02/12/21 ibuprofen 800 mg tablet 800 mg PO Q8H PRN #14 tab 02/12/21 oxycodone 5 mg tablet 5 mg PO BID PRN #10 tab 02/12/21 cyclobenzaprine 10 mg tablet 10 mg PO TID PRN #15 tab 04/28/21 lidocaine 4 % topical patch 1 patch TOPICAL DAILY PRN #10 ea 04/28/21 ondansetron 4 mg disintegrating 4 mg PO ONCE PRN #10 tab 11/28/21 tablet penicillin V potassium 500 mg 500 mg PO BID 10 Days #20 tab 03/18/22 tablet Allergies Allergy/AdvReac Type Severity Reaction Status Date / Time tramadol [TRAMADOL] Allergy Severe ITCHING Verified 01/19/21 13:46 Review of Systems Constitutional: Constitutional: Reports no additional constitutional complaints, Denies chills, Denies fever(s) and Denies night sweats Eyes: Eyes: Reports no additional eye complaints, Denies blurry vision, Denies change in vision, Denies diplopia, Denies eye discharge, Denies loss of vision and Denies eye pain ENT: Denies dizziness, Reports neck pain and Reports sore throat Cardiovascular: Cardiovascular: Reports no additional cardiovascular complaints, Denies chest pain, Denies lightheadedness, Denies Loss of Consciousness and Denies dyspnea Respiratory: Respiratory: Reports no additional respiratory complaints and Denies dyspnea Gastrointestinal: Gastrointestinal: Reports no additional gastrointestinal complaints, Denies abdominal pain, Denies melena, Denies hematochezia, Denies change in bowel habits and Denies change in stool character Genitourinary: Genitourinary: Denies hematuria, Denies urinary frequency, Denies dysuria, Denies urinary incontinence, Denies urinary hesitancy and Denies urinary urgency Musculoskeletal: Musculoskeletal: Reports no additional musculoskeletal complaints, Reports neck pain, Denies numbness and Denies tingling Neurologic: Denies dizziness, Denies loss of vision, Denies numbness and Denies tingling Psychiatric: Psychiatric: Reports no additional psychiatric complaints Endocrine: Endocrine: Reports no additional endocrine complaints Hematologic/Lymphatic: Hematologic/Lymphatic: Reports no additional hematologic/lymphatic complaints Allergic/Immunologic: Allergic/Immunologic: Reports no additional allergic/immunologic complaints PMFSH Past Medical History Attestation statement: The following information was validated with the patient. Source: old records reviewed Medical History COVID-19 Endometritis No known health problems Patient denies medical problems Social History Social History Alcohol intake: never Advance Directives: No Advance Directives Information Provided: Yes Patient : No Physical Exam ED Vital Signs: Vital Signs - 24 hr 03/18/22 07:39 Temperature 98.3 F Pulse Rate 86 Respiratory Rate 18 Blood Pressure 122/81 Pulse Oximetry 99 BMI result Body Mass Index 27.2 Const General: cooperative, no acute distress, alert and awake Nutritional Appearance: well nourished Orientation/consciousness: patient oriented x3 Limitations: no limitations HENMT Head: Yes normal to inspection and Yes atraumatic Ears: hearing grossly normal bilaterally and external ears normal General nose exam: Normal external nose present, no nasal discharge noted and no epistaxis Face and sinus: Yes normal facial exam, No abrasion and No laceration Mouth: Normal oral and palatal mucosa present, no drooling and no muffled voice Throat: Yes other (erythema in the posterior pharynx) Eyes General: appearance normal, both eyes and all related structures Periorbital: periorbital findings normal Eyelids: Yes eyelids normal Conjunctivae: conjunctivae normal Pupils: Equal, round and reactive pupils present EOM: EOMs intact bilaterally Neck Neck: Yes normal visual inspection, Yes full ROM and Yes no lymphadenopathy Chest Chest palpation & inspection: normal inspection of the chest Resp Effort & Inspection: normal respiratory effort and able to speak in complete sentences Auscultation: clear to auscultation bilaterally Cardio Rate: regular rate Rhythm: regular rhythm GI Inspection: Yes normal to inspection Neuro General: patient oriented x3 and moves all extremities Cranial nerves: Yes Equal, round and reactive pupils present Cognition (Neuro): normal cognition Motor exam (neuro): 5/5 motor strength present throughout Sensory Exam: Normal double simultaneous stimulation for sensation Coordination: [id number] test normal Extrem General: Yes normal to inspection, Yes full ROM and Yes capillary refill normal Psych Appearance: grossly normal Mental Status: mental status grossly normal Affect: normal affect Attitude: cooperative Thought process: Normal thought process present Thought content: Normal thought content present Insight: Good insight present (Psych) Medical Decision Making MDM Narrative Medical decision making narrative: Patient is a 41 year old female presenting to the emergency department today with a sore throat and neck pain. Patient's physical exam showed posterior pharyngeal erythema but was otherwise unremarkable. Patient's neurological examination was normal. Patient did not have any meningeal signs. Patient's blood work was unremarkable. Patient's rapid COVID-19 and influenza tests were negative. Patient's strep test was negative. I explained my physical exam findings as well as all test results to the patient. I answered all questions asked by the patient. Patient received PO viscous lidocaine and IM Toradol which she stated helped her symptoms significantly. I stressed the importance of the patient taking her medication as prescribed. I stressed the importance of the patient following up with her primary care provider. I stressed the importance of the patient returning to the emergency department immediately if her symptoms were to worsen or if she were to develop any dizziness, shortness of breath, difficulty breathing, chest pain, blurry vision, loss of vision, nausea, vomiting, abdominal pain, fever, chills, back pain, or any other complaints. Patient verbalized agreement and understanding with this treatment plan and discharge. Differential Diagnosis Differential Diagnosis: pharyngitis, sore throat, body aches Medical Records Medical records reviewed: Yes I reviewed the patient's medical records. Lab Data Lab results reviewed: Yes I reviewed the patient's lab results. Result diagrams: 03/18/22 08:57 03/18/22 08:57 Labs: Lab Results 03/18/22 03/18/22 03/18/22 Range/Units 08:57 08:57 08:57 WBC 8.6 (4.8-10.8) X10*3/uL RBC 4.70 (4.20-5.50) X10*6/uL Hgb 12.7 (12.0-16.0) g/dl Hct 39.7 (37.0-47.0) % MCV 84.5 (80.0-98.0) fL MCH 27.0 (27.0-33.0) pg MCHC 32.0 (31.0-35.0) g/dl RDW 14.9 (11.0-16.0) % Plt Count 256 (160-400) X10*3/uL MPV 10.4 (9.4-12.3) fL Immature Gran % (Auto) 0.2 (0.0-0.4) % Neut % (Auto) 67.2 (45-73) % Lymph % (Auto) 26.8 (20-40) % [place] % (Auto) 3.6 (2-11) % Eos % (Auto) 1.9 (0-4) % Baso % (Auto) 0.3 (0-2) % Lymph # (Auto) 2.3 (1.2-4.9) X10*3/uL [place] # (Auto) 0.3 (0.1-1.2) X10*3/uL Eos # (Auto) 0.2 (0.0-0.4) X10*3/uL Baso # (Auto) 0.0 (0.0-0.2) X10*3/uL Abs Immat Gran (auto) 0.02 (0.00-0.03) X10*3/uL Absolute Neuts (auto) 5.8 (2.0-8.3) x10*3/uL Absolute Nucleated RBC 0.000 (0.0-0.012) X10*3/uL Nucleated RBC % (auto) 0.0 (0.0-0.2) /100WBC Sodium 138 (135-145) mmol/L Potassium 4.0 (3.3-5.1) mmol/L Chloride 106 (96-108) mmol/L Carbon Dioxide 28 (22-29) mmol/L Anion Gap 8 L (12-20) BUN 11 D (9-16) mg/dL Creatinine 0.73 (0.5-1.4) mg/dL Estim Creat Clear Calc 93.2 Estimated GFR > 60 Random Glucose 105 (60-115) mg/dL Calcium 9.4 (8.4-10.2) mg/dL Total Bilirubin 0.3 (0.0-1.0) mg/dL AST 15 D (5-31) U/L ALT 18 (0-31) U/L Alkaline Phosphatase 73 (39-117) U/L Total Protein 6.9 (6.5-8.0) g/dL Albumin 4.1 (3.5-5.0) g/dL COVID-19 (JARON) (Negative) COVID-19 Clin Com Influenza Type A (CARMELITA) Negative (Negative) Influenza Type B (CARMELITA) Negative (Negative) Influenza A & B Note See Note S. pyogenes GrpA CARMELITA (Negative) 03/18/22 03/18/22 Range/Units 08:57 09:38 WBC (4.8-10.8) X10*3/uL RBC (4.20-5.50) X10*6/uL Hgb (12.0-16.0) g/dl Hct (37.0-47.0) % MCV (80.0-98.0) fL MCH (27.0-33.0) pg MCHC (31.0-35.0) g/dl RDW (11.0-16.0) % Plt Count (160-400) X10*3/uL MPV (9.4-12.3) fL Immature Gran % (Auto) (0.0-0.4) % Neut % (Auto) (45-73) % Lymph % (Auto) (20-40) % [place] % (Auto) (2-11) % Eos % (Auto) (0-4) % Baso % (Auto) (0-2) % Lymph # (Auto) (1.2-4.9) X10*3/uL [place] # (Auto) (0.1-1.2) X10*3/uL Eos # (Auto) (0.0-0.4) X10*3/uL Baso # (Auto) (0.0-0.2) X10*3/uL Abs Immat Gran (auto) (0.00-0.03) X10*3/uL Absolute Neuts (auto) (2.0-8.3) x10*3/uL Absolute Nucleated RBC (0.0-0.012) X10*3/uL Nucleated RBC % (auto) (0.0-0.2) /100WBC Sodium (135-145) mmol/L Potassium (3.3-5.1) mmol/L Chloride (96-108) mmol/L Carbon Dioxide (22-29) mmol/L Anion Gap (12-20) BUN (9-16) mg/dL Creatinine (0.5-1.4) mg/dL Estim Creat Clear Calc Estimated GFR Random Glucose (60-115) mg/dL Calcium (8.4-10.2) mg/dL Total Bilirubin (0.0-1.0) mg/dL AST (5-31) U/L ALT (0-31) U/L Alkaline Phosphatase (39-117) U/L Total Protein (6.5-8.0) g/dL Albumin (3.5-5.0) g/dL COVID-19 (JARON) Negative (Negative) COVID-19 Clin Com See Note Influenza Type A (CARMELITA) (Negative) Influenza Type B (CARMELITA) (Negative) Influenza A & B Note S. pyogenes GrpA CARMELITA Negative (Negative) Discharge Plan Discharge Clinical Impression: Sore throat Patient Disposition: Home, Self-Care Additional Instructions: Follow up with your primary care provider. Return to the emergency department immediately if your symptoms worsen or if you develop any dizziness, shortness of breath, difficulty breathing, chest pain, blurry vision, loss of vision, nausea, vomiting, abdominal pain, fever, chills, back pain, or any other complaints. Prescriptions: New penicillin V potassium 500 mg tablet 500 mg PO BID 10 Days Qty: 20 0RF No Action meclizine 25 mg tablet 25 mg PO TID PRN (Reason: dizziness) Qty: 14 0RF valacyclovir [Valtrex] 1 gram tablet 1,000 mg PO BID 7 Days Qty: 14 0RF fluconazole [Diflucan] 150 mg tablet 150 mg PO Q3D Qty: 2 0RF Rx Instructions: Take 1st dose today if symptoms persist repeat in 3 days. metronidazole [Flagyl] 500 mg tablet 500 mg PO BID 7 Days Qty: 14 0RF acetaminophen-codeine 300-30 mg tablet 1 tab PO Q8H PRN (Reason: pain) Qty: 10 0RF cyclobenzaprine 10 mg tablet 10 mg PO Q8H Qty: 10 0RF ibuprofen 800 mg tablet 800 mg PO Q8H PRN (Reason: pain) Qty: 14 0RF acetaminophen [Tylenol Extra Strength] 500 mg tablet 1,000 mg PO QID PRN (Reason: fever or pain) Qty: 14 0RF oxycodone 5 mg tablet 5 mg PO BID PRN (Reason: pain) Qty: 10 0RF naproxen 500 mg tablet 500 mg PO BID PRN (Reason: pain) Qty: 10 0RF diazepam [Valium] 5 mg tablet 5 mg PO TID PRN (Reason: pain) Qty: 10 0RF cyclobenzaprine 10 mg tablet 10 mg PO TID PRN (Reason: muscle spasm) Qty: 15 0RF methocarbamol 750 mg tablet 750 mg PO Q8H Qty: 15 0RF naproxen 375 mg tablet 375 mg PO BID PRN (Reason: pain) Qty: 20 0RF lidocaine [Lidoderm] 5 % adhesive patch,medicated 1 patch topical DAILY Qty: 15 0RF Rx Instructions: leave on most painful area for up to 12 hrs cyclobenzaprine 10 mg tablet 10 mg PO TID PRN (Reason: muscle spasm) Qty: 15 0RF lidocaine 4 % adhesive patch,medicated 1 patch topical DAILY PRN (Reason: pain) Qty: 10 0RF Rx Instructions: may leave on for up to 12 hrs ondansetron 4 mg tablet,disintegrating 4 mg PO ONCE PRN (Reason: nausea and vomiting) Qty: 10 0RF Referrals: [facility] [place] [facility] [place] Group] [facility] [place] [facility]Provider Group] [facility] [place] [facility] [Provider Group] Physician,Unknown J [Primary Care Provider] - (Follow up with your PCP. ) Stand Alone Forms: Work/School Release Print Language: Tajik
[2022-03-18 09:06] LABS: MANUAL DIFF FLAG NO
[2022-03-18 09:14] LABS: Basophils Percent Auto 0.3 % (0-2); Eosinophils Absolute Auto 0.2 X10*3/uL (0.0-0.4); Eosinophils Percent Auto 1.9 % (0-4); Hematocrit 39.7 % (37.0-47.0); Hemoglobin 12.7 g/dl (12.0-16.0); Imm Gran Abs Auto 0.02 X10*3/uL (0.00-0.03); Imm Gran Pct Auto 0.2 % (0.0-0.4); Lymphocytes Absolute Auto 2.3 X10*3/uL (1.2-4.9); Lymphocytes Percent Auto 26.8 % (20-40); Mean Corpuscular Volume 84.5 fL (80.0-98.0); Mean Platelet Volume 10.4 fL (9.4-12.3); Monocytes Absolute Auto 0.3 X10*3/uL (0.1-1.2); Monocytes Percent Auto 3.6 % (2-11); Neutrophils Absolute Auto 5.8 x10*3/uL (2.0-8.3); Neutrophils Percent Auto 67.2 % (45-73); Platelet Count 256 X10*3/uL (160-400); Red Cell Distribution Width 14.9 % (11.0-16.0); White Blood Count 8.6 X10*3/uL (4.8-10.8)
[2022-03-18 09:27] LABS: COVID-19 Test Negative (Negative); IDNOW Serial# 55D5AD1C
[2022-03-18 09:29] LABS: Alanine Aminotransferase 18 U/L (0-31); Albumin Level 4.1 g/dL (3.5-5.0); Alkaline Phosphatase 73 U/L (39-117); Anion Gap 8 (12-20); Aspartate Amino Transferase 15 U/L (5-31); Bilirubin Total 0.3 mg/dL (0.0-1.0); Blood Urea Nitrogen 11 mg/dL (9-16); Calcium 9.4 mg/dL (8.4-10.2); Carbon Dioxide 28 mmol/L (22-29); Chloride 106 mmol/L (96-108); Creatinine Clr Calc Pharmacy 93.2; Estimated Glomerular Filt Rate > 60; Glucose Random 105 mg/dL (60-115); Sodium 138 mmol/L (135-145); Total Protein 6.9 g/dL (6.5-8.0)
[2022-03-18 09:34] LABS: Influenza A Negative (Negative); Influenza B2 Negative (Negative)
[2022-03-18 10:01] LABS: Strep A Nucleic Acid Negative (Negative)
[2022-03-18] MEDS: Ketorolac Tromethamine 15 MG/ML VIAL IM (10:01)
[2022-03-18] MEDS: Lidocaine HCl Viscous 2 % 15 ML SOLUTION MUCOUS MEM (10:01)
[2022-03-18 10:14] VITALS: BP 130/84; PULSE 84; RESP 18; O2SAT 98
== END 2022-03-18 10:17 | disposition home or self-care (01) ==
PROVIDERS: Physician Assistant Medical; Emergency Provider Emergency Medicine
DX: J02.9 Acute pharyngitis, unspecified (principal); Z20.822 Contact with and (suspected) exposure to COVID-19
CPT/HCPCS: 80053; 85025; 87502; 87635; 87651; 96372; 99284; J1885

== ENCOUNTER 2022-08-30 06:46 | Emergency (ER) | payer BC, SELFPAY ==
[2022-08-30 07:27] VITALS: BP 123/74; PULSE 85; RESP 16; TEMP 36.6; O2SAT 99; BMI 27.4
[2022-08-30 08:00] LABS: COVID-19 Test Negative (Negative); IDNOW Serial# 16C4AD1C
--- NOTE | 2022-08-30 09:25 | ED_ITS ---
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 No vision changes, vomiting, diarrhea, abdominal pain, fevers, chills, cough, nasal congestion/rhinorrhea, skin rash, neck pain or stiffness, urinary symptoms, chest pain. Patient deneis recent travel. No sick contact. She has received 2 covid vaccinations. 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 Related Data Previous Rx's Medication Instructions Recorded diazepam 5 mg tablet (Valium) 5 mg PO TID PRN pain #10 tabs 08/26/20 naproxen 500 mg tablet 500 mg PO BID PRN pain #10 tabs 08/26/20 meclizine 25 mg tablet 25 mg PO TID PRN dizziness #14 tabs 09/11/20 valacyclovir 1 gram tablet 1,000 mg PO BID 7 days #14 tabs 09/11/20 (Valtrex) Diflucan 150 mg tablet 150 mg PO Q3D yeats infection 2 09/17/20 (fluconazole) doses #2 tabs Flagyl 500 mg tablet 500 mg PO BID bacterial vaginosis 09/17/20 (metronidazole) 7 days #14 tabs acetaminophen 300 mg-codeine 30 mg 1 tab PO Q8H PRN pain #10 tabs 09/17/20 tablet cyclobenzaprine 10 mg tablet 10 mg PO TID PRN muscle spasm #15 11/14/20 tabs lidocaine 5 % topical patch 1 patch topical DAILY #15 ea 01/19/21 (Lidoderm) methocarbamol 750 mg tablet 750 mg PO Q8H #15 tabs 01/19/21 naproxen 375 mg tablet 375 mg PO BID PRN pain #20 tabs 01/19/21 acetaminophen 500 mg tablet 1,000 mg PO QID PRN fever or pain 02/12/21 (Tylenol Extra Strength) #14 tabs cyclobenzaprine 10 mg tablet 10 mg PO Q8H Muscle spasm #10 tabs 02/12/21 ibuprofen 800 mg tablet 800 mg PO Q8H PRN pain #14 tabs 02/12/21 oxycodone 5 mg tablet 5 mg PO BID PRN pain #10 tabs 02/12/21 cyclobenzaprine 10 mg tablet 10 mg PO TID PRN muscle spasm #15 04/28/21 tabs lidocaine 4 % topical patch 1 patch topical DAILY PRN pain #10 04/28/21 ea ondansetron 4 mg disintegrating 4 mg PO ONCE PRN nausea and 11/28/21 tablet vomiting #10 tabs penicillin V potassium 500 mg 500 mg PO BID 10 days #20 tabs 03/18/22 tablet Allergies Allergy/AdvReac Type Severity Reaction Status Date / Time tramadol [TRAMADOL] Allergy Severe ITCHING Verified 03/18/22 11:51 Review of Systems Review of Systems: Yes all other systems are reviewed and are negative Constitutional: Constitutional: Reports no additional constitutional complaints, Reports body ache(s), Denies chills, Denies fever(s), Reports headache(s), Reports poor appetite and Denies weakness Eyes: Eyes: Reports no additional eye complaints, Denies change in vision and Denies photophobia ENT: Reports system reviewed and no additional complaints, except as documented, Denies dizziness, Reports headache(s), Denies nasal congestion, Denies nasal discharge, Denies neck pain and Reports sore throat Cardiovascular: Cardiovascular: Reports no additional cardiovascular complaints, Denies chest pain, Denies leg edema and Denies dyspnea Respiratory: Respiratory: Reports no additional respiratory complaints, Denies cough and Denies dyspnea Gastrointestinal: Gastrointestinal: Reports no additional gastrointestinal complaints, Denies abdominal pain, Denies diarrhea, Reports nausea and Denies vomiting Genitourinary: Genitourinary: Reports no additional female genitourinary complaints, Denies hematuria, Denies dysuria, Denies urinary incontinence and Denies vaginal discharge Musculoskeletal: Musculoskeletal: Reports no additional musculoskeletal complaints, Denies back pain, Denies arthralgias, Denies joint swelling, Denies neck pain, Denies numbness and Denies tingling Integumentary/Breasts: Skin/Breast: Reports system reviewed and no additional complaints, except as docu and Denies rash Neurologic: Reports system reviewed and no additional complaints, except as documented, Denies dizziness, Reports headache(s), Denies numbness, Denies tingling and Denies weakness PMFSH Past Medical History Attestation statement: The following information was validated with the patient. Source: old records reviewed and nursing notes reviewed Medical History COVID-19 Endometritis No known health problems Patient denies medical problems Social History Social History Alcohol intake: never Patient Tobacco Use Status: Current everyday Tobacco user Advance Directives: No Advance Directives Information Provided: No Physical Exam ED Vital Signs: Vital Signs - 24 hr 08/30/22 07:27 Temperature 97.9 F Pulse Rate 85 Respiratory Rate 16 Blood Pressure 123/74 Pulse Oximetry 99 Oxygen Delivery Method Room Air BMI result Body Mass Index 27.4 Const General: cooperative, healthy appearing, comfortable and no acute distress Orientation/consciousness: patient oriented x3 Limitations: no limitations HENMT Head: Yes normal to inspection Ears: hearing grossly normal bilaterally and TM's normal bilaterally General nose exam: Normal external nose present Face and sinus: Yes normal facial exam and No sinus tenderness Mouth: Normal oral and palatal mucosa present Teeth and gingiva: dentition normal Throat: Yes posterior oropharynx normal, Yes tonsils normal and Yes uvula midli ne Eyes General: appearance normal, both eyes and all related structures Pupils: Equal, round and reactive pupils present Direct Ophthalmoscopy: No photophobia Neck Neck: Yes normal visual inspection, Yes full ROM, Yes no lymphadenopathy and Yes no meningeal signs Chest Chest palpation & inspection: normal inspection of the chest Resp Effort & Inspection: normal respiratory effort Auscultation: clear to auscultation bilaterally Cardio Rate: regular rate Rhythm: regular rhythm Peripheral pulses: Peripheral pulses 2+ throughout GI Inspection: Yes normal to inspection Palpation (GI): Soft to palpation and nontender Auscultation: normal bowel sounds Back/Spine/Pelvis Thoracic/Lumbar Spine: thoracic and lumbar spine normal to inspection Skin General skin exam: no rashes or lesions noted Neuro General: patient oriented x3, moves all extremities and no meningeal signs Cranial nerves: Yes Equal, round and reactive pupils present and Yes Midline tongue present Cognition (Neuro): normal cognition Gait exam (Neuro): Normal gait present Extrem General: Yes normal to inspection, Yes no pedal edema and Yes no calf tenderness Medical Decision Making MDM Narrative Medical decision making narrative: 42yo female with a constellation of symptoms including but not limited to frontal head pressure , feeling lightheaded with position changes, sore throat, nausea, loss of appetite, body aches x 48 hrs. Patient had a rapid COVID screen from triage which is negative. Her exam is benign. She is afebrile. Likely viral syndrome. Patient is tolerating p.o. with no difficulty. Vitals are stable. Reviewed worrisome signs and symptoms with the patient and when to return to the emergency room. Comfortable discharge home. -considered meningitis but less likely with no meningeal signs, no fever, normal neurological exam Medical Records Medical records reviewed: Yes I reviewed the patient's medical records. Lab Data Lab results reviewed: Yes I reviewed the patient's lab results. Labs: Lab Results 08/30/22 Range/Units 07:39 COVID-19 (JARON) Negative (Negative) COVID-19 Clin Com See Note Discharge Plan Discharge Clinical Impression: Acute viral syndrome Patient Disposition: Home, Self-Care Instructions: Viral Syndrome (ED) Additional Instructions: Bañuelos prueba de covid fue negativa. Alterne motrin y/o tylenol para el dolor seg?n sea necesario. Aumente los l?quidos en casa. Regresa por dolor de pecho, dificultad para respirar, v?mitos, fiebre que no responde a motrin o tylenol, debilidad. Sonia un seguimiento con bañuelos PCP en 1 semana por cualquier s?ntoma persistente que no mejore con los tratamientos anteriores. Prescriptions: No Action meclizine 25 mg tablet 25 mg PO TID PRN (Reason: dizziness) Qty: 14 0RF valacyclovir [Valtrex] 1 gram tablet 1,000 mg PO BID 7 Days Qty: 14 0RF fluconazole [Diflucan] 150 mg tablet 150 mg PO Q3D Qty: 2 0RF Rx Instructions: Take 1st dose today if symptoms persist repeat in 3 days. metronidazole [Flagyl] 500 mg tablet 500 mg PO BID 7 Days Qty: 14 0RF acetaminophen-codeine 300-30 mg tablet 1 tab PO Q8H PRN (Reason: pain) Qty: 10 0RF cyclobenzaprine 10 mg tablet 10 mg PO Q8H Qty: 10 0RF ibuprofen 800 mg tablet 800 mg PO Q8H PRN (Reason: pain) Qty: 14 0RF acetaminophen [Tylenol Extra Strength] 500 mg tablet 1,000 mg PO QID PRN (Reason: fever or pain) Qty: 14 0RF oxycodone 5 mg tablet 5 mg PO BID PRN (Reason: pain) Qty: 10 0RF naproxen 500 mg tablet 500 mg PO BID PRN (Reason: pain) Qty: 10 0RF diazepam [Valium] 5 mg tablet 5 mg PO TID PRN (Reason: pain) Qty: 10 0RF cyclobenzaprine 10 mg tablet 10 mg PO TID PRN (Reason: muscle spasm) Qty: 15 0RF methocarbamol 750 mg tablet 750 mg PO Q8H Qty: 15 0RF naproxen 375 mg tablet 375 mg PO BID PRN (Reason: pain) Qty: 20 0RF lidocaine [Lidoderm] 5 % adhesive patch,medicated 1 patch topical DAILY Qty: 15 0RF Rx Instructions: leave on most painful area for up to 12 hrs cyclobenzaprine 10 mg tablet 10 mg PO TID PRN (Reason: muscle spasm) Qty: 15 0RF lidocaine 4 % adhesive patch,medicated 1 patch topical DAILY PRN (Reason: pain) Qty: 10 0RF Rx Instructions: may leave on for up to 12 hrs penicillin V potassium 500 mg tablet 500 mg PO BID 10 Days Qty: 20 0RF ondansetron 4 mg tablet,disintegrating 4 mg PO ONCE PRN (Reason: nausea and vomiting) Qty: 10 0RF Referrals: Physician,Unknown J [Primary Care Provider] - 1 week Stand Alone Forms: Work/School Release Interventions: ED Discharge Assessment Last Done: 08/30/22 09:37 Discharge Date/Time: 08/30/22 09:38 Print Language: American
== END 2022-08-30 09:38 | disposition home or self-care (01) ==
PROVIDERS: Emergency Provider Student in an Organized Health Care Education/Training Program
DX: B34.9 Viral infection, unspecified (principal); R51.9 Headache, unspecified; Z20.822 Contact with and (suspected) exposure to COVID-19; F17.200 Nicotine dependence, unspecified, uncomplicated
CPT/HCPCS: 87635; 99283

== ENCOUNTER 2023-02-25 09:40 | Emergency (ER) | payer BC, SELFPAY ==
[2023-02-25 09:45] VITALS: BP 145/88; PULSE 101; RESP 16; TEMP 37.3; O2SAT 98; BMI 28.9
[2023-02-25 10:16] LABS: COVID-19 Test Negative (Negative); IDNOW Serial# 6674DD1D
[2023-02-25 10:19] LABS: IDNOW Serial# 55D5AD1C; Influenza A Negative (Negative); Influenza B2 Negative (Negative)
[2023-02-25 10:23] LABS: IDNOW Serial# 6674DD1D; Strep A Nucleic Acid Positive (Negative)
--- NOTE | 2023-02-25 10:38 | ED_ITS ---
HPI - General Adult General Chief complaint: Upper Respiratory Symptoms Stated complaint: sore throat Time Seen by Provider: 02/25/23 10:13 Source: patient Mode of arrival: ambulatory History of Present Illness HPI narrative: 42-year-old female with a past medical history of endometritis, presenting to the ED complaining sore throat, ear pain, myalgias x today, also reports vaginal itching/bumps noted last night. Reports pain with swallowing and subjective fever/chills. Denies difficulty/inability to swallow, cough, CP/SOB, abdominal pain, vaginal bleeding, vaginal discharge, new sexual partners, concern for STI. Admits a sexually active with 1 partner. Onset (ago): day(s) Related Data Previous Rx's Medication Instructions Recorded diazepam 5 mg tablet (Valium) 5 mg PO TID PRN pain #10 tabs 08/26/20 naproxen 500 mg tablet 500 mg PO BID PRN pain #10 tabs 08/26/20 meclizine 25 mg tablet 25 mg PO TID PRN dizziness #14 tabs 09/11/20 valacyclovir 1 gram tablet 1,000 mg PO BID 7 days #14 tabs 09/11/20 (Valtrex) Diflucan 150 mg tablet 150 mg PO Q3D yeats infection 2 09/17/20 (fluconazole) doses #2 tabs Flagyl 500 mg tablet 500 mg PO BID bacterial vaginosis 09/17/20 (metronidazole) 7 days #14 tabs acetaminophen 300 mg-codeine 30 mg 1 tab PO Q8H PRN pain #10 tabs 09/17/20 tablet cyclobenzaprine 10 mg tablet 10 mg PO TID PRN muscle spasm #15 11/14/20 tabs lidocaine 5 % topical patch 1 patch topical DAILY #15 ea 01/19/21 (Lidoderm) methocarbamol 750 mg tablet 750 mg PO Q8H #15 tabs 01/19/21 naproxen 375 mg tablet 375 mg PO BID PRN pain #20 tabs 01/19/21 acetaminophen 500 mg tablet 1,000 mg PO QID PRN fever or pain 02/12/21 (Tylenol Extra Strength) #14 tabs cyclobenzaprine 10 mg tablet 10 mg PO Q8H Muscle spasm #10 tabs 02/12/21 ibuprofen 800 mg tablet 800 mg PO Q8H PRN pain #14 tabs 02/12/21 oxycodone 5 mg tablet 5 mg PO BID PRN pain #10 tabs 02/12/21 cyclobenzaprine 10 mg tablet 10 mg PO TID PRN muscle spasm #15 04/28/21 tabs lidocaine 4 % topical patch 1 patch topical DAILY PRN pain #10 04/28/21 ea ondansetron 4 mg disintegrating 4 mg PO ONCE PRN nausea and 11/28/21 tablet vomiting #10 tabs penicillin V potassium 500 mg 500 mg PO BID 10 days #20 tabs 03/18/22 tablet clotrimazole 1 % topical cream 1 appl topical BID 2 weeks #30 02/25/23 (Antifungal (clotrimazole)) grams fluconazole 150 mg tablet 150 mg PO Q3D 2 doses #2 tabs 02/25/23 (Diflucan) mupirocin 2 % topical ointment 1 appl topical BID 7 days #22 grams 02/25/23 penicillin V potassium 500 mg 500 mg PO BID 7 days #14 tabs 02/25/23 tablet Allergies Allergy/AdvReac Type Severity Reaction Status Date / Time tramadol [TRAMADOL] Allergy Severe ITCHING Verified 03/18/22 11:51 Review of Systems Review of Systems: Constitutional: +subj Fever, +Chills, No Fatigue, + Malaise ENT/Mouth: + Ear Pain, No Nasal Congestion, No Sinus Pain, No Hoarseness, + sore throat, + Rhinorrhea, No Swallowing Difficulty Eyes: No Eye Pain, No Swelling, No Redness, No Vision Changes Cardiovascular: No Chest Pain, No SOB, No Edema, No Palpitations Respiratory: No Cough, No Sputum, No Dyspnea Gastrointestinal: No Nausea, No Vomiting, No Diarrhea, No Constipation, No Abdominal pain Genitourinary: +vaginal itching, +vaginal bumps, No irregular bleeding, No Dysuria, No Urinary Frequency, No Hematuria, No Flank Pain, No Urinary Flow Changes, No Hesitancy Musculoskeletal: No joint pain, No Myalgias, Skin: No Skin Lesions, No rash Neuro: No Weakness, No Headache Yes all other systems are reviewed and are negative Constitutional: Constitutional: Reports as per [facility] Past Medical History Attestation statement: The following information was validated with the patient. Medical History COVID-19 Endometritis No known health problems Patient denies medical problems Social History Social History Alcohol intake: never Patient Tobacco Use Status: Current everyday Tobacco user Advance Directives: No Advance Directives Information Provided: Yes Physical Exam ED Vital Signs: Vital Signs - 24 hr 02/25/23 09:45 Temperature 99.2 F Pulse Rate 101 H Respiratory Rate 16 Blood Pressure 145/88 H Pulse Oximetry 98 Oxygen Delivery Method Room Air BMI result Body Mass Index 28.9 Const General: cooperative, healthy appearing and no acute distress Orientation/consciousness: patient oriented x3 Limitations: no limitations HENMT Head: Yes normal to inspection and Yes atraumatic Ears: hearing grossly normal bilaterally, external ears normal, TM's normal bilaterally and mastoids normal General nose exam: Normal external nose present Face and sinus: Yes normal facial exam Throat: Yes uvula midline, Yes abnormal tonsil (+ bilateral tonsillar erythema & swelling with exudates) and No peritonsillar mass Eyes General: appearance normal, both eyes and all related structures EOM: EOMs intact bilaterally Neck Neck: Yes normal visual inspection, Yes no lymphadenopathy, Yes no meningeal signs, Yes supple and No anterior neck swelling Resp Effort & Inspection: normal respiratory effort and no respiratory distress Auscultation: clear to auscultation bilaterally Cardio Rate: regular rate Heart sounds: S1 normal heart sound present and S2 normal heart sound present GI Inspection: Yes normal to inspection Palpation (GI): Soft to palpation, nontender, no guarding and not rigid Other: +small cluster of skin colored papules to right perineum. No ulcerations, no surrounding erythema, no fluctuance/induration or drainage. + irritated skin to right labia majora. No appreciable lacerations. No vaginal discharge/bleeding Speculum Exam - Vagina: No vaginal bleeding OB/external & speculum: No vaginal bleeding Neuro General: patient oriented x3, tone normal and no meningeal signs Gait exam (Neuro): Normal gait present Extrem General: Yes normal to inspection Course Course Course Narrative: -rapid strep positive. COVID and influenza negative -UA contaminated, we will wait on culture to prescribed antibiotics >> stressed importance of close OBGYN and PCP follow-up. Patient given 1st dose of Diflucan and penicillin V in the ED Results discussed with patient including worrisome signs and symptoms and strict return precautions, and when to return to the emergency department. They verbalized understanding and feel safe for discharge at this time. Medications Administered Discontinued Medications Generic Name Dose Route Start Last Admin Trade Name Any PRN Reason Stop Dose Admin Ibuprofen 800 mg 02/25/23 11:37 02/25/23 11:47 Ibuprofen 800 Mg Tablet PO 02/25/23 11:38 800 mg ONCE ONE Administration Lidocaine HCl 5 ml 02/25/23 11:29 02/25/23 11:47 Lidocaine Hcl Viscous 2 % 15 Ml Solution MUCOUS MEM 02/25/23 11:30 5 ml ONCE ONE Administration Penicillin V Potassium 500 mg 02/25/23 11:29 02/25/23 11:47 Penicillin V Potassium 250 Mg Tablet PO 02/25/23 11:30 500 mg ONCE ONE Administration Medical Decision Making Medical Decision Making [facility] Narrative: 42-year-old female with a past medical history of endometritis, presenting to the ED complaining sore throat, ear pain, myalgias x today, also reports vaginal itching/bumps noted last night. On exam low-grade temp 99.2 degrees, tachycardic likely from fever, talking in complete sentences, no respiratory distress, bilateral tonsillar swelling/erythema with exudates noted, uvula midline, no evidence of VEGETABLES COOK. External vaginal exam shows labial irritation and skin colored bumps. No ulcerations/drainage, no bleeding or discharge. Concern for strep pharyngitis vs viral syndrome. Concern for yeast infection vs vaginitis vs ?STI although symptoms are external. Lower suspicion for herpes. No evidence of chancre Plan: COVID/flu, rapid strep testing, herpes culture, symptomatic remedies Please refer to course for remaining clinical decision making, interpretation of labs/imaging results, and discussions with consultants and/or family members. Differential Diagnosis Differential Diagnoses: The differential diagnosis associated with the presentation includes As above Admission/Observation Consideration of admission/observation: Escalation of care including admission/observation considered Lab Data [facility] Lab Attestation statement: I reviewed the patient's lab results. Labs: Lab Results 02/25/23 02/25/23 02/25/23 Range/Units 09:55 09:55 09:57 Urine Color Urine Appearance Urine pH (5.0-9.0) Ur Specific [place] (1.005-1.025) Urine Protein (Neg-Trace) mg/dL Urine Glucose (UA) (Negative) mg/dL Urine Ketones (Negative) mg/dL Urine Blood (Negative) Urine Nitrite (Negative) Ur Leukocyte Esterase (Negative) Urine RBC (0-2) /HPF Urine WBC (0-5) /HPF Ur Squamous Epith Cells (0-2) /HPF Urine Bacteria (None Seen) Hyaline Casts (0-2) /LPF Urine Test (NEGATIVE) COVID-19 (JARON) Negative (Negative) COVID-19 Clin Com See Note Influenza Type A (CARMELITA) Negative (Negative) Influenza Type B (CARMELITA) Negative (Negative) Influenza A & B Note See Note S. pyogenes GrpA CARMELITA Positive A (Negative) 02/25/23 02/25/23 Range/Units 11:10 11:10 Urine Color Yellow Urine Appearance Cloudy Urine pH 5.5 (5.0-9.0) Ur Specific [place] 1.025 (1.005-1.025) Urine Protein Negative (Neg-Trace) mg/dL Urine Glucose (UA) Negative (Negative) mg/dL Urine Ketones Trace (Negative) mg/dL Urine Blood Small (1+) H (Negative) Urine Nitrite Negative (Negative) Ur Leukocyte Esterase Trace H (Negative) Urine RBC 6-10 H (0-2) /HPF Urine WBC 6-10 H (0-5) /HPF Ur Squamous Epith Cells 11-20 (0-2) /HPF Urine Bacteria 1+ (None Seen) Hyaline Casts 0-2 (0-2) /LPF Urine Test NEGATIVE (NEGATIVE) COVID-19 (JARON) (Negative) COVID-19 Clin Com Influenza Type A (CARMELITA) (Negative) Influenza Type B (CARMELITA) (Negative) Influenza A & B Note S. pyogenes GrpA CARMELITA (Negative) Radiology Impression Discussion of test interpretation with radiology: I have reviewed the radiologist's reading. External Record Review External record reviewed: Inpatient record, Office record, Outpatient record, Prior outpatient labs, Prior outpatient radiology, Primary care record and Outside ED record Discharge Plan Discharge Clinical Impression: Acute streptococcal pharyngitis, Vaginal yeast infection, Vaginal irritation Patient Disposition: Home, Self-Care Instructions: Strep Throat (DC), Skin Yeast Infection (ED) Additional Instructions: You have strep throat. you tested negative for COVID in the flu. Penicillin is an antibiotic please take as prescribed Please take Tylenol and Motrin we tested you for herpes, this culture will be back in 2-3 days, we will contact you with positive results only. avoid sexual contact until you know the results of her cultures Please apply topical clotrimazole and mupirocin and a 1:1 ratio to itchy area. You need to have close follow-up with OBGYN If area worsens, spreads, you are unable to urinate, have blood in your urine, you are unable to swallow, have fever unresolved with medications return to the emergency department Tienes faringitis estreptoc?cica. anam negativo para COVID en la gripe. La penicilina es un antibi?polina, t?li seg?n lo prescrito. Por favor tome Tylenol y Motrin le hicimos la prueba de herpes, angelina cultivo estar? de vuelta en 2-3 d?as, nos pondremos en contacto con usted solo con resultados positivos. evite el contacto sexual hasta que sepa los resultados de lashanda cultivos Aplique clotrimazol y mupirocina t?picos y derek proporci?n de 1: 1 en el ?kelly con picaz?n. Debe tener un seguimiento cercano con OBGYN Si el ?kelly empeora, se extiende, no puede orinar, tiene nancy en la orina, no puede tragar, tiene fiebre que no se resuelve con medicamentos, regrese al departamento de emergencias. Prescriptions: New fluconazole [Diflucan] 150 mg tablet 150 mg PO Q3D Qty: 2 0RF mupirocin 2 % ointment 1 appl topical BID 7 Days Qty: 22 0RF clotrimazole [Antifungal (clotrimazole)] 1 % cream 1 appl topical BID 14 Days Qty: 30 0RF penicillin V potassium 500 mg tablet 500 mg PO BID 7 Days Qty: 14 0RF No Action meclizine 25 mg tablet 25 mg PO TID PRN (Reason: dizziness) Qty: 14 0RF valacyclovir [Valtrex] 1 gram tablet 1,000 mg PO BID 7 Days Qty: 14 0RF fluconazole [Diflucan] 150 mg tablet 150 mg PO Q3D Qty: 2 0RF Rx Instructions: Take 1st dose today if symptoms persist repeat in 3 days. metronidazole [Flagyl] 500 mg tablet 500 mg PO BID 7 Days Qty: 14 0RF acetaminophen-codeine 300-30 mg tablet 1 tab PO Q8H PRN (Reason: pain) Qty: 10 0RF cyclobenzaprine 10 mg tablet 10 mg PO Q8H Qty: 10 0RF ibuprofen 800 mg tablet 800 mg PO Q8H PRN (Reason: pain) Qty: 14 0RF acetaminophen [Tylenol Extra Strength] 500 mg tablet 1,000 mg PO QID PRN (Reason: fever or pain) Qty: 14 0RF oxycodone 5 mg tablet 5 mg PO BID PRN (Reason: pain) Qty: 10 0RF naproxen 500 mg tablet 500 mg PO BID PRN (Reason: pain) Qty: 10 0RF diazepam [Valium] 5 mg tablet 5 mg PO TID PRN (Reason: pain) Qty: 10 0RF cyclobenzaprine 10 mg tablet 10 mg PO TID PRN (Reason: muscle spasm) Qty: 15 0RF methocarbamol 750 mg tablet 750 mg PO Q8H Qty: 15 0RF naproxen 375 mg tablet 375 mg PO BID PRN (Reason: pain) Qty: 20 0RF lidocaine [Lidoderm] 5 % adhesive patch,medicated 1 patch topical DAILY Qty: 15 0RF Rx Instructions: leave on most painful area for up to 12 hrs cyclobenzaprine 10 mg tablet 10 mg PO TID PRN (Reason: muscle spasm) Qty: 15 0RF lidocaine 4 % adhesive patch,medicated 1 patch topical DAILY PRN (Reason: pain) Qty: 10 0RF Rx Instructions: may leave on for up to 12 hrs penicillin V potassium 500 mg tablet 500 mg PO BID 10 Days Qty: 20 0RF ondansetron 4 mg tablet,disintegrating 4 mg PO ONCE PRN (Reason: nausea and vomiting) Qty: 10 0RF Referrals: [facility] – [place] [facility] [Provider Group] - 1 week Ana Luisa Lynn PA [Emergency Midlevel Provider] - Stand Alone Forms: Work/School Release Interventions: ED Discharge Assessment Last Done: 02/25/23 11:54 Discharge Date/Time: 02/25/23 11:55 Print Language: Greenlandic
[2023-02-25 11:18] LABS: Appearance Urine Cloudy; Color Urine Yellow; Glucose Urine UA Negative (Negative); Leukocyte Esterase Urine Trace (Negative); Nitrite Urine Negative (Negative); PH 5.5 (5.0-9.0); Specific Gravity - Urine 1.025 (1.005-1.025); UMIC TRIGGER UACC YES; Urine Blood Small (1+) (Negative); Urine Ketones Trace mg/dL (Negative); Urine Protein Negative (Neg-Trace)
[2023-02-25 11:19] LABS: Urine Pregnancy NEGATIVE (NEGATIVE)
[2023-02-25 11:20] LABS: UPreg QC Valid YES
[2023-02-25 11:21] LABS: Bacteria Urine 1+ (None Seen); Hyaline Casts Urine 0-2 /LPF (0-2); UACC Culture Trigger YES
[2023-02-25] MEDS: Penicillin V Potassium 250 MG TABLET 500 MG PO (11:47)
[2023-02-25] MEDS: Ibuprofen 800 MG TABLET PO (11:47)
[2023-02-25] MEDS: Lidocaine HCl Viscous 2 % 15 ML SOLUTION 5 ML MUCOUS MEM (11:47)
== END 2023-02-25 11:55 | disposition home or self-care (01) ==
PROVIDERS: Physician Assistant; Emergency Provider Emergency Medicine
DX: J02.0 Streptococcal pharyngitis (principal); B37.31 Acute candidiasis of vulva and vagina; R10.9 Unspecified abdominal pain; R13.10 Dysphagia, unspecified; R50.9 Fever, unspecified; Z79.899 Other long term (current) drug therapy; Z20.822 Contact with and (suspected) exposure to COVID-19; Z20.828 Contact with and (suspected) exposure to other viral communicable diseases
CPT/HCPCS: 36415; 81001; 81025; 87086; 87255; 87502; 87635; 87651; 99283